=== PATIENT | male | born 1965 | race Caucasian/White ===

== ENCOUNTER 2018-08-27 13:46 | Inpatient (IN) | payer OTHER ==
[2018-08-27 15:03] VITALS: BMI 21.8
--- NOTE | 2018-08-27 17:51 | HP ---
CIWA Score Nausea/Vomitin Muscle Tremors: 2 Anxiety: 2 Agitation: 2 Paroxysmal Sweats: 1-Minimal Palms Moist Orientation: 0-Oriented Tacttile Disturbances: 1-Very Mild Itch/Numbness Auditory Disturbances: 1-Very Mild Visual Disturbances: 0-None Headache: 2-Mild CIWA-Ar Total Score: 13 - Admission Criteria OASAS Guidelines: Admission for Medically Managed Detox: Requires at least one of the followin. CIWA greater than 12 2. Seizures within the past 24 hours 3. Delirium tremens within the past 24 hours 4. Hallucinations within the past 24 hours 5. Acute intervention needed for co occurring medical disorder 6. Acute intervention needed for co occurring psychiatric disorder 7. Severe withdrawal that cannot be handled at a lower level of care (continued vomiting, continued diarrhea, abnormal vital signs) requiring intravenous medication and/or fluids 8. Patient presents the following: CIWA greater than 12 Admission Criteria Met: Admission criteria met Admission ROS S - [facility] Chief Complaint: i need help to stop drinking alcohol and cocaine Allergies/Adverse Reactions: Allergies Allergy/AdvReac Type Severity Reaction Status Date / Time No Known Allergies Allergy Verified 08/27/18 18:16 History of Present Illness: this 53 years old with alcohol and cocaine dependence,seeking detox,withdrawal symptom,last detox 08/07 in [place], [facility] [place] alcohol related nicotine dependence longest period of sobriety 7 years bipolar disorder with depression non compliance weight loss plan for rehab after detox - Ebola screening Have you traveled outside of the country in the last 21 days: No (N) Have you had contact with anyone from an Ebola affected area: No Have you been sick,other than usual withdrawal symptoms: No Do you have a fever: No - Review of Systems Constitutional: Loss of Appetite, Malaise, Night Sweats, Changes in sleep, Weakness, Unintentional Wgt. Loss EENT: reports: Tearing, Nose Congestion Respiratory: reports: No Symptoms reported Cardiac: reports: No Symptoms Reported GI: reports: Nausea, Poor Appetite, Abdominal cramping : reports: No Symptoms Reported Musculoskeletal: reports: Back Pain, Muscle Pain Integumentary: reports: Dryness Neuro: reports: Headache, Tremors Endocrine: reports: No Symptoms Reported Hematology: reports: No Symptoms Reported Psychiatric: reports: No Sypmtoms Reported, Judgement Intact, Mood/Affect Appropiate, Orientated x3, other (bipolar disorder) Patient History - Patient Medical History Hx Anemia: No Hx Asthma: No Hx Chronic Obstructive Pulmonary Disease (COPD): No Hx Cancer: No Hx Cardiac Disorders: No Hx Congestive Heart Failure: No Hx Hypertension: No Hx Hypercholesterolemia: No Hx Pacemaker: No HX Cerebrovascular Accident: No Hx Seizures: No Hx Dementia: No Hx Diabetes: No Hx Gastrointestinal Disorders: No Hx Liver Disease: No Hx Genitourinary Disorders: No Hx Sexually Transmitted Disorders: No Hx Renal Disease (ESRD): No Hx Thyroid Disease: No Hx Human Immunodeficiency Virus (HIV): No Hx Hepatitis C: No Hx Depression: Yes (no med) Hx Suicide Attempt: No Hx Bipolar Disorder: Yes (noncompliance) Hx Schizophrenia: No Other Medical History: no suicidal,no homicidal - Patient Surgical History Past Surgical History: No Hx Neurologic Surgery: No Hx Cataract Extraction: No Hx Cardiac Surgery: No Hx Lung Surgery: No Hx Breast Surgery: No Hx Breast Biopsy: No Hx Abdominal Surgery: No Hx Appendectomy: No Hx Cholecystectomy: No Hx Genitourinary Surgery: No Hx Section: No Hx Orthopedic Surgery: No Anesthesia Reaction: No - PPD History Previous Implant?: Yes Documented Results: Negative w/o proof Implanted On Prior R Admission?: Yes Date: 07/25/12 PPD to be Administered?: Yes - Smoking Cessation Smoking history: Current every day smoker Have you smoked in the past 12 months: Yes Aproximately how many cigarettes per day: 10 Hx Chewing Tobacco Use: No Initiated information on smoking cessation: Yes 'Breaking Loose' booklet given: 08/27/18 - Substance & Tx. History Hx Alcohol Use: Yes Hx Substance Use: Yes Substance Use Type: Alcohol, Cocaine Hx Substance Use Treatment: Yes (08/07 [place]) - Substances Abused Alcohol Route: Oral Frequency: Daily Amount used: 1pint of vodka/6 packs of 24 ozs of beer Age of first use: 8 Date of Last Use: 08/26/18 Cocaine Route: Smoking Frequency: Daily Amount used: 100$ Age of first use: 9 Date of Last Use: 08/23/18 Family Disease History - Family Disease History Family History: Denies Admission Physical Exam BHS - Vital Signs Vital Signs: Vital Signs - 24 hr 08/27/18 15:00 Temperature 97.8 F Pulse Rate 81 Respiratory 18 Rate Blood Pressure 104/63 - Physical General Appearance: Yes: Moderate Distress, Tremorous, Irritable, Sweating, Anxious HEENTM: Yes: Normal ENT Inspection, KELLEY, Pharynx Normal Respiratory: Yes: Lungs Clear, Normal Breath Sounds Neck: Yes: Within Normal Limits, Supple, Trachea in good position Breast: Yes: Within Normal Limits Cardiology: Yes: Regular Rhythm, Regular Rate, S1, S2, Edema Abdominal: Yes: Within Normal Limits, Normal Bowel Sounds, Non Tender, Soft Genitourinary: Yes: Within Normal Limits Back: Yes: Muscle Spasm Musculoskeletal: Yes: full range of Motion, Back pain, Muscle Pain Extremities: Yes: Tremors Neurological: Yes: tearoom hostess II-XII NML intact, Fully Oriented, Alert, Motor Strength 5/5 Integumentary: Yes: Dry Lymphatic: Yes: Within Normal Limits - Diagnostic (1) Alcohol dependence with uncomplicated withdrawal Current Visit: Yes Status: Acute (2) Cocaine dependence Current Visit: No Status: Active (3) Weight decreased Current Visit: No Status: Active (4) Syncope Current Visit: Yes Status: Acute (5) Dehydration Current Visit: Yes Status: Acute (6) Nicotine dependence Current Visit: Yes Status: Acute (7) Weight loss Current Visit: Yes Status: Acute Cleared for Admission [facility] - Detox or Rehab [facility] Level of Care: Medically Managed Detox Regimen/Protocol: Librium S Breath Alcohol Content Breath Alcohol Content: 0 Urine Drug Screen - Results Drug Screen Negative: No Urine Drug Screen Results: EFRA-Cocaine
[2018-08-27] MEDS ORDERED: IBUPROFEN 400 MG TABLET (FP) PO PRN (18:00)
[2018-08-27] MEDS ORDERED: MAG HYDROX/AL HYDROX/SIMETH 30 ML UNIT-DOSE CUP PO PRN (18:00)
[2018-08-27] MEDS ORDERED: MENTHOL/PHENOL 1 EACH UD MM PRN (18:00)
[2018-08-27] MEDS ORDERED: NICOTINE POLACRILEX 2 MG GUM BC PRN (18:00)
[2018-08-27] MEDS ORDERED: MAGNESIUM CITRATE 300 ML BOTTLE PO PRN (18:00)
[2018-08-27] MEDS ORDERED: ACETAMINOPHEN 325 MG TABLET (FP) PO PRN (18:00)
[2018-08-27] MEDS ORDERED: P-EPHED 60MG/TRIPROLIDI 2.5MG TABLET PO PRN (18:00)
[2018-08-27] MEDS ORDERED: LOPERAMIDE HCL 2 MG CAPSULE PO PRN (18:00)
[2018-08-27] MEDS ORDERED: guaiFENesin/D-METHORPHAN HB 10 ML UNIT-DOSE CUPS PO PRN (18:00)
[2018-08-27] MEDS ORDERED: MAGNESIUM HYDROX 2400MG/30ML ORAL SUSPENSION 30 ML CUP PO PRN (18:00)
[2018-08-27] MEDS ORDERED: chlordiazePOXIDE HCL 25 MG CAPSULE PO PRN (18:00)
[2018-08-27] MEDS ORDERED: hydrOXYzine PAMOATE 50 MG CAPSULE (FP) PO PRN (18:00)
[2018-08-27] MEDS: THIAMINE HCL 100 MG TABLET (FP) PO SCH (22:04)
[2018-08-27] MEDS: chlordiazePOXIDE HCL 25 MG CAPSULE PO SCH (22:04)
[2018-08-28] MEDS: chlordiazePOXIDE HCL 25 MG CAPSULE PO SCH ×4 (05:13→22:20)
[2018-08-28] MEDS: PRENATAL VITAMINS W/ FOLIC ACID TABLET (FP) PO SCH (10:08)
[2018-08-28] MEDS: NICOTINE 21 MG/24 HOURS TOPICAL PATCH TD SCH (10:10)
[2018-08-28 10:12] LABS: ALBUMIN 3.6 g/dl (3.4-5.0); ALK PHOS 78 U/L (45-117); ANION GAP 7 MMOL/L (8-16); BILIRUBIN,TOTAL 0.2 mg/dL (0.2-1); BLOOD UREA NITROGEN 15 mg/dL (7-18); CALCIUM 8.6 mg/dL (8.5-10.1); CHLORIDE 106 mmol/L (98-107); CO2 29 mmol/L (21-32); GLUCOSE,RANDOM 90 mg/dL (74-106); POTASSIUM 4.2 mmol/L (3.5-5.1); SGOT/AST 23 U/L (15-37); SGPT/ALT 23 U/L (13-61); SODIUM 142 mmol/L (136-145); TOT PROT 6.8 g/dl (6.4-8.2)
[2018-08-28 10:23] LABS: HEMATOCRIT 42.4 % (35.4-49); HEMOGLOBIN 14.8 GM/dL (11.7-16.9); MCH 29.5 pg (25.7-33.7); MEAN CELL VOLUME 84.3 fl (80-96); MEAN PLT VOLUME 7.7 fl (7.5-11.1); PLATELET COUNT 436 K/MM3 (134-434); RBC 5.03 M/mm3 (4.00-5.60); RDW 12.9 % (11.9-15.9); WHITE BLOOD COUNT 11.1 K/mm3 (4.0-10.0)
--- NOTE | 2018-08-28 12:19 | PN ---
BHS CIWA - CIWA Score Nausea/Vomitin Muscle Tremors: None Anxiety: 1-Mildly Anxious Agitation: 1-Slight > Activity Paroxysmal Sweats: 3 Orientation: 0-Oriented Tacttile Disturbances: 0-None Auditory Disturbances: 0-None Visual Disturbances: 0-None Headache: 3-Moderate CIWA-Ar Total Score: 10 BHS Progress Note (SOAP) Subjective: PATIENT C/O NAUSEA/DIARRHEA, HEADACHE AND NIGHT SWEATS. Objective: 08/28/18 12:17 Vital Signs Temperature 97.0 F L 08/28/18 09:19 Pulse Rate 69 08/28/18 09:19 Respiratory Rate 16 08/28/18 09:19 Blood Pressure 95/55 L 08/28/18 09:19 O2 Sat by Pulse Oximetry (%) Laboratory Tests 08/28/18 08/28/18 08/28/18 07:00 07:00 07:00 WBC 11.1 H RBC 5.03 Hgb 14.8 Hct 42.4 MCV 84.3 MCH 29.5 MCHC 35.0 RDW 12.9 Plt Count 436 H D MPV 7.7 Sodium 142 Potassium 4.2 Chloride 106 Carbon Dioxide 29 Anion Gap 7 L BUN 15 Creatinine 1.0 Creat Clearance w eGFR > 60 Random Glucose 90 Calcium 8.6 Total Bilirubin 0.2 AST 23 ALT 23 Alkaline Phosphatase 78 Total Protein 6.8 Albumin 3.6 RPR Titer Nonreactive PE: ALERT AND ORIENTED X 3 SKIN WARM, +FACIAL MOISTURE NEURO: +PERRLA, EOMS INTACT BL CAR S1S2 RESP CTA BL EXT FULL ROM, NO VISIBLE TREMORS AMB AD ALTON Assessment: 08/28/18 12:18 WITHDRAWAL SX Plan: CONTINUE DETOX ENCOURAGE ORAL FLUIDS CONTINUE TO MONITOR CLINICALLY
[2018-08-28] MEDS: MELATONIN 5 MG TABLETS PO PRN (22:20)
[2018-08-28] MEDS: THIAMINE HCL 100 MG TABLET (FP) PO SCH (22:20)
[2018-08-29] MEDS: chlordiazePOXIDE HCL 25 MG CAPSULE PO SCH ×3 (06:31→17:21)
[2018-08-29] MEDS: PRENATAL VITAMINS W/ FOLIC ACID TABLET (FP) PO SCH (10:11)
[2018-08-29] MEDS: NICOTINE 21 MG/24 HOURS TOPICAL PATCH TD SCH (10:12)
--- NOTE | 2018-08-29 13:21 | PN ---
S CIWA - CIWA Score Nausea/Vomitin-No Nausea/No Vomiting Muscle Tremors: 2 Anxiety: 4-Mod. Anxious/Guarded Agitation: 2 Paroxysmal Sweats: No Perspiration Orientation: 0-Oriented Tacttile Disturbances: 0-None Auditory Disturbances: 0-None Visual Disturbances: 0-None Headache: 0-None Present CIWA-Ar Total Score: 8 BHS Progress Note (SOAP) Subjective: PATIENT C/O MILD SHAKES, CHILLS, ANXIETY AND RESTLESSNESS. Objective: 08/29/18 13:19 Vital Signs Temperature 96.2 F L 08/29/18 09:26 Pulse Rate 78 08/29/18 09:26 Respiratory Rate 17 08/29/18 09:26 Blood Pressure 101/73 08/29/18 09:26 O2 Sat by Pulse Oximetry (%) Laboratory Tests 08/28/18 08/28/18 08/28/18 07:00 07:00 07:00 WBC 11.1 H RBC 5.03 Hgb 14.8 Hct 42.4 MCV 84.3 MCH 29.5 MCHC 35.0 RDW 12.9 Plt Count 436 H D MPV 7.7 Sodium 142 Potassium 4.2 Chloride 106 Carbon Dioxide 29 Anion Gap 7 L BUN 15 Creatinine 1.0 Creat Clearance w eGFR > 60 Random Glucose 90 Calcium 8.6 Total Bilirubin 0.2 AST 23 ALT 23 Alkaline Phosphatase 78 Total Protein 6.8 Albumin 3.6 RPR Titer Nonreactive PE: ALERT AND ORIENTED X 3 SKIN +GOOSEFLESH EXT FULL ROM, MILD TREMORS AMB AD ALTON +ANXIETY Assessment: 08/29/18 13:21 WITHDRAWAL SX Plan: CONTINUE DETOX ENCOURAGE ORAL FLUIDS CONTINUE TO MONITOR CLINICALLY
[2018-08-29] MEDS: MELATONIN 5 MG TABLETS PO PRN (22:04)
[2018-08-29] MEDS: chlordiazePOXIDE 5 MG CAPSULE PO SCH (22:04)
[2018-08-29] MEDS: THIAMINE HCL 100 MG TABLET (FP) PO SCH (22:04)
[2018-08-30] MEDS: chlordiazePOXIDE 5 MG CAPSULE PO SCH ×3 (05:58→17:28)
[2018-08-30] MEDS: NICOTINE 21 MG/24 HOURS TOPICAL PATCH TD SCH (10:28)
[2018-08-30] MEDS: PRENATAL VITAMINS W/ FOLIC ACID TABLET (FP) PO SCH (10:29)
--- NOTE | 2018-08-30 11:40 | PN ---
BHS Progress Note (SOAP) Subjective: feeling better less tremor little sweat sleep better at night social with peers in day room Objective: 08/30/18 11:39 Vital Signs Temperature 96.9 F L 08/30/18 09:10 Pulse Rate 70 08/30/18 09:10 Respiratory Rate 18 08/30/18 09:10 Blood Pressure 101/58 L 08/30/18 09:10 O2 Sat by Pulse Oximetry (%) Laboratory Last Values WBC 11.1 K/mm3 (4.0-10.0) H 08/28/18 07:00 RBC 5.03 M/mm3 (4.00-5.60) 08/28/18 07:00 Hgb 14.8 GM/dL (11.7-16.9) 08/28/18 07:00 Hct 42.4 % (35.4-49) 08/28/18 07:00 MCV 84.3 fl (80-96) 08/28/18 07:00 MCH 29.5 pg (25.7-33.7) 08/28/18 07:00 MCHC 35.0 g/dl (32.0-35.9) 08/28/18 07:00 RDW 12.9 % (11.9-15.9) 08/28/18 07:00 Plt Count 436 K/MM3 (134-434) H D 08/28/18 07:00 MPV 7.7 fl (7.5-11.1) 08/28/18 07:00 Sodium 142 mmol/L (136-145) 08/28/18 07:00 Potassium 4.2 mmol/L (3.5-5.1) 08/28/18 07:00 Chloride 106 mmol/L (98-107) 08/28/18 07:00 Carbon Dioxide 29 mmol/L (21-32) 08/28/18 07:00 Anion Gap 7 MMOL/L (8-16) L 08/28/18 07:00 BUN 15 mg/dL (7-18) 08/28/18 07:00 Creatinine 1.0 mg/dL (0.55-1.3) 08/28/18 07:00 Creat Clearance w eGFR > 60 (>60) 08/28/18 07:00 Random Glucose 90 mg/dL (74-106) 08/28/18 07:00 Calcium 8.6 mg/dL (8.5-10.1) 08/28/18 07:00 Total Bilirubin 0.2 mg/dL (0.2-1) 08/28/18 07:00 AST 23 U/L (15-37) 08/28/18 07:00 ALT 23 U/L (13-61) 08/28/18 07:00 Alkaline Phosphatase 78 U/L (45-117) 08/28/18 07:00 Total Protein 6.8 g/dl (6.4-8.2) 08/28/18 07:00 Albumin 3.6 g/dl (3.4-5.0) 08/28/18 07:00 RPR Titer Nonreactive (NONREACTIVE) 08/28/18 07:00 lab noted Assessment: 08/30/18 11:40 mild withdrawal sx Plan: continue detox
[2018-08-30] MEDS: THIAMINE HCL 100 MG TABLET (FP) PO SCH (22:12)
[2018-08-30] MEDS: MELATONIN 5 MG TABLETS PO PRN (22:12)
[2018-08-30] MEDS: chlordiazePOXIDE HCL 10 MG CAPSULE PO SCH (22:12)
[2018-08-31] MEDS: chlordiazePOXIDE HCL 10 MG CAPSULE PO SCH ×2 (06:00→10:11)
[2018-08-31] MEDS: NICOTINE 21 MG/24 HOURS TOPICAL PATCH TD SCH (10:12)
[2018-08-31] MEDS: PRENATAL VITAMINS W/ FOLIC ACID TABLET (FP) PO SCH (10:13)
[2018-08-31 13:10] VITALS: BP 87/51; PULSE 76; TEMP 98.2
--- NOTE | 2018-08-31 15:29 | DS ---
[facility] Detox Discharge Summary Admission Date: 08/27/18 Discharge Date: 08/31/18 - History Present History: Alcohol Dependence Additional Comments: 53 years old male admitted on 08/27/18 for alcohol withdrawal stabilization completed detox regime tolerated well alert no acute distress aftercare [facility] Physical Exam Results Vital Signs: Vital Signs Temperature 98.2 F 08/31/18 13:09 Pulse Rate 76 08/31/18 13:09 Respiratory Rate 16 08/31/18 13:09 Blood Pressure 87/51 L 08/31/18 13:09 O2 Sat by Pulse Oximetry (%) Pertinent Admission Physical Exam Findings: alcohol withdrawal sx Laboratory Last Values WBC 11.1 K/mm3 (4.0-10.0) H 08/28/18 07:00 RBC 5.03 M/mm3 (4.00-5.60) 08/28/18 07:00 Hgb 14.8 GM/dL (11.7-16.9) 08/28/18 07:00 Hct 42.4 % (35.4-49) 08/28/18 07:00 MCV 84.3 fl (80-96) 08/28/18 07:00 MCH 29.5 pg (25.7-33.7) 08/28/18 07:00 MCHC 35.0 g/dl (32.0-35.9) 08/28/18 07:00 RDW 12.9 % (11.9-15.9) 08/28/18 07:00 Plt Count 436 K/MM3 (134-434) H D 08/28/18 07:00 MPV 7.7 fl (7.5-11.1) 08/28/18 07:00 Sodium 142 mmol/L (136-145) 08/28/18 07:00 Potassium 4.2 mmol/L (3.5-5.1) 08/28/18 07:00 Chloride 106 mmol/L (98-107) 08/28/18 07:00 Carbon Dioxide 29 mmol/L (21-32) 08/28/18 07:00 Anion Gap 7 MMOL/L (8-16) L 08/28/18 07:00 BUN 15 mg/dL (7-18) 08/28/18 07:00 Creatinine 1.0 mg/dL (0.55-1.3) 08/28/18 07:00 Creat Clearance w eGFR > 60 (>60) 08/28/18 07:00 Random Glucose 90 mg/dL (74-106) 08/28/18 07:00 Calcium 8.6 mg/dL (8.5-10.1) 08/28/18 07:00 Total Bilirubin 0.2 mg/dL (0.2-1) 08/28/18 07:00 AST 23 U/L (15-37) 08/28/18 07:00 ALT 23 U/L (13-61) 08/28/18 07:00 Alkaline Phosphatase 78 U/L (45-117) 08/28/18 07:00 Total Protein 6.8 g/dl (6.4-8.2) 08/28/18 07:00 Albumin 3.6 g/dl (3.4-5.0) 08/28/18 07:00 RPR Titer Nonreactive (NONREACTIVE) 08/28/18 07:00 lab noted - Treatment Hospital Course: Detox Protocol Followed, Detoxed Safely, Responded well, Discharged Condition Good, Rehab Referral Accepted - Medication Discharge Medications: Ambulatory Orders Citalopram Hydrobromide [Celexa -] 20 mg PO DAILY #0 tablet 07/26/12 - Diagnosis (1) Weight decreased Status: Active (2) Alcohol dependence with uncomplicated withdrawal Status: Acute (3) Nicotine dependence Status: Acute Qualifiers: Nicotine product type: cigarettes Substance use status: in withdrawal Qualified Code(s): F17.213 - Nicotine dependence, cigarettes, with withdrawal - AMA Did Patient Leave Against Medical Advice: No
== END 2018-08-31 14:31 | disposition other institution (70) | DRG 774 ==
LOC: YASAS 13:46 → Y3N 18:03
PROC: HZ2ZZZZ Detoxification Services for Substance Abuse Treatment (ICD-10-PCS; principal; 2018-08-27)
DX: F10.230 Alcohol dependence with withdrawal, uncomplicated (principal); F14.20 Cocaine dependence, uncomplicated; F17.213 Nicotine dependence, cigarettes, with withdrawal; E86.0 Dehydration; Z91.14 Patient's other noncompliance with medication regimen
CPT/HCPCS: 36415; 80053; 85027; 86593

== ENCOUNTER 2018-08-31 15:09 | Inpatient (IN) | payer OTHER ==
[2018-08-31] MEDS ORDERED: LOPERAMIDE HCL 2 MG CAPSULE PO PRN (15:32)
[2018-08-31] MEDS ORDERED: NICOTINE POLACRILEX 2 MG GUM BUC PRN (15:32)
[2018-08-31] MEDS ORDERED: P-EPHED 60MG/TRIPROLIDI 2.5MG TABLET PO PRN (15:32)
[2018-08-31] MEDS ORDERED: MAGNESIUM HYDROX 2400MG/30ML ORAL SUSPENSION 30 ML CUP PO PRN (15:32)
[2018-08-31] MEDS ORDERED: MAGNESIUM CITRATE 300 ML BOTTLE PO PRN (15:32)
[2018-08-31] MEDS ORDERED: IBUPROFEN 400 MG TABLET (FP) PO PRN (15:32)
[2018-08-31] MEDS ORDERED: NICOTINE 14 MG/24 HOURS TOPICAL PATCH TD PRN (15:32)
[2018-08-31] MEDS ORDERED: MAG HYDROX/AL HYDROX/SIMETH 30 ML UNIT-DOSE CUP PO PRN (15:32)
[2018-08-31] MEDS ORDERED: ACETAMINOPHEN 325 MG TABLET (FP) PO PRN (15:32)
[2018-08-31] MEDS ORDERED: MENTHOL/PHENOL 1 EACH UD MM PRN (15:32)
--- NOTE | 2018-08-31 15:32 | HP ---
[facility] Rehab Assess/Revision - Admission History Admitted to Rehab from: [facility] Date of Admission to Rehab: 08/31/18 - Findings Detox History & Physical reviewed: Yes Concur with findings: Yes Comments/Additional Findings: transferred from detox to rehab admission as per protocol Inpatient Rehab Admission - Initial Determination Are CD services needed?: Yes Free of communicable disease: Yes Not in need of hospitalization: Yes - Rehab Admission Criteria Previous failed treatment: Yes Poor recovery environment: Yes Comorbidities: Yes Lacks judgement: No Patient is meeting Inpatient Rehab admission criteria:: Yes
[2018-08-31] MEDS: THIAMINE HCL 100 MG TABLET (FP) PO SCH (21:13)
[2018-08-31] MEDS: MELATONIN 5 MG TABLETS PO PRN (21:13)
--- NOTE | 2018-09-01 06:04 | HP ---
Psychiatrist Admission - Data Date of interview: 09/01/18 Admission source: [address] [place] [address] Identifying data: This is the first [facility] admission for this 53 years old single male, unemployed on SSI, homeless Medical History: Unremarkable. Smokes 10 cigaretes daily Psychiatric History: Patient is a poor historian and his recollection of historical narrative is very sketchy. Reports that he has history of hearing voices, feeling depressed and sleeping poorly. He said that he was diagnosed with Bipolar Disorder a few years ago. Claims to have had multiple psychiatric admissions in hospitals all over [facility](Pending Sale To [facility], [place], [facility], [facility], [facility]). He said most recent one was [facility] but he has no recollection of date. Denies receiving outpatient OPD care currently. He claims that up to a 2 weeks ago when he was living at his cousin in [place] he was taking Risperdal 3 mg po HS and some other medications. He said that his cousin asked him to leave and he forgot his medications there. According to [employer] claim, scripts for 30 days supply for Celexa 30 mg#30 and Trazadone 100 mg#30 prescribed by Abigail Allen were filled on 01/24/18. When confronted with that fact, he said that he was in a 6 month propram caleed prep in [place]. Denies history of previous suicidal attempt. At present, reports feeling depressed and sleeping poorly. However denies experiencing psychotic, manic symptoms, S/H ideations Physical/Sexual Abuse/Trauma History: Denies history of emotional, physical or sexual abuse as well as DV relationship. No service Additional Comment: Reports history of a few arrests including 2 felony covictions. No parole/probation currently Allergies/Adverse Reactions: Allergies Allergy/AdvReac Type Severity Reaction Status Date / Time No Known Allergies Allergy Verified 08/27/18 18:16 Date of last physical exam: 08/27/18 Concur with the findings of this exam: Yes - Substance Abuse/Tx History Hx Alcohol Use: Yes Hx Substance Use: Yes Substance Use Type: Alcohol (Started drinking alcohol at age 8, consumes one pint of vodka & a 6pk(24oz) of beer daily. Last drank on 08/26/18), Cocaine ( Started smoking crack cocaine at age 9, consumes $100 worth daily. Last smoked on 08/26/18) Hx Substance Use Treatment: Yes (2 previous inpt detox @ [facility]) Mental Status Exam - Mental Status Exam Alert and Oriented to: Time, Place, Person Cognitive Function: Fair Patient Appearance: Well Groomed Mood: Depressed Affect: Appropriate Patient Behavior: Cooperative Speech Pattern: Clear Voice Loudness: Normal Thought Process: Intact, Goal Oriented Thought Disorder: Not Present Hallucinations: Denies Suicidal Ideation: Denies Homicidal Ideation: Denies Insight/Judgement: Fair Sleep: Poorly Appetite: Good Muscle strength/Tone: Normal Gait/Station: Normal Psychiatric Findings - Problem List ([place] 1, 2,3) (1) Alcohol dependence Current Visit: No Status: Active (2) Cocaine dependence Current Visit: No Status: Acute (3) Nicotine dependence Current Visit: No Status: Chronic Qualifiers: Nicotine product type: cigarettes Substance use status: in withdrawal Qualified Code(s): F17.213 - Nicotine dependence, cigarettes, with withdrawal (4) Bipolar II disorder Current Visit: Yes Status: Chronic (5) Schizoaffective disorder Current Visit: Yes Status: Ruled-out (6) Substance induced mood disorder Current Visit: Yes Status: Acute (7) Substance-induced sleep disorder Current Visit: Yes Status: Acute - Initial Treatment Plan Initial Treatment Plan: 1) Resume Risperdal 3 mg po HS, Celexa 20 mg po daily and Trazadone 100 mg po HS. 2) Monitor progress
[2018-09-01] MEDS: PRENATAL VITAMINS W/ FOLIC ACID TABLET (FP) PO SCH (09:54)
[2018-09-01] MEDS: CITALOPRAM HYDROBROMIDE 20 MG TABLET (FP) PO SCH (16:16)
[2018-09-01] MEDS: THIAMINE HCL 100 MG TABLET (FP) PO SCH (21:54)
[2018-09-01] MEDS: risperiDONE 3 MG TABLET PO SCH (21:54)
[2018-09-01] MEDS: traZODone HCL 100 MG TABLET (FP) PO SCH (21:54)
[2018-09-01] MEDS: NAPROXEN 375 MG TABLET (FP) PO PRN (21:55)
[2018-09-01] MEDS: MELATONIN 5 MG TABLETS PO PRN (21:55)
[2018-09-02] MEDS: CITALOPRAM HYDROBROMIDE 20 MG TABLET (FP) PO SCH (11:26)
[2018-09-02] MEDS: PRENATAL VITAMINS W/ FOLIC ACID TABLET (FP) PO SCH (11:26)
[2018-09-02] MEDS: NAPROXEN 375 MG TABLET (FP) PO PRN (11:27)
[2018-09-02] MEDS ORDERED: FLU VACCINE QUAD 60 MCG/0.5 ML (MDV 18-19) IM ONE (12:00)
[2018-09-02] MEDS: risperiDONE 3 MG TABLET PO SCH (21:11)
[2018-09-02] MEDS: traZODone HCL 100 MG TABLET (FP) PO SCH (21:11)
[2018-09-02] MEDS: THIAMINE HCL 100 MG TABLET (FP) PO SCH (21:12)
[2018-09-03] MEDS: CITALOPRAM HYDROBROMIDE 20 MG TABLET (FP) PO SCH (09:57)
[2018-09-03] MEDS: PRENATAL VITAMINS W/ FOLIC ACID TABLET (FP) PO SCH (09:57)
[2018-09-03] MEDS: THIAMINE HCL 100 MG TABLET (FP) PO SCH (21:16)
[2018-09-03] MEDS: risperiDONE 3 MG TABLET PO SCH (21:16)
[2018-09-03] MEDS: traZODone HCL 100 MG TABLET (FP) PO SCH (21:16)
[2018-09-03] MEDS: MELATONIN 5 MG TABLETS PO PRN (21:17)
[2018-09-04] MEDS: PRENATAL VITAMINS W/ FOLIC ACID TABLET (FP) PO SCH (09:54)
[2018-09-04] MEDS: CITALOPRAM HYDROBROMIDE 20 MG TABLET (FP) PO SCH (09:55)
[2018-09-04] MEDS: risperiDONE 3 MG TABLET PO SCH (21:33)
[2018-09-04] MEDS: traZODone HCL 100 MG TABLET (FP) PO SCH (21:33)
[2018-09-04] MEDS: THIAMINE HCL 100 MG TABLET (FP) PO SCH (21:33)
[2018-09-04] MEDS: MELATONIN 5 MG TABLETS PO PRN (21:34)
[2018-09-05] MEDS: PRENATAL VITAMINS W/ FOLIC ACID TABLET (FP) PO SCH (09:45)
[2018-09-05] MEDS: CITALOPRAM HYDROBROMIDE 20 MG TABLET (FP) PO SCH (09:45)
[2018-09-05] MEDS: MELATONIN 5 MG TABLETS PO PRN (21:09)
[2018-09-05] MEDS: THIAMINE HCL 100 MG TABLET (FP) PO SCH (21:09)
[2018-09-05] MEDS: traZODone HCL 100 MG TABLET (FP) PO SCH (21:09)
[2018-09-05] MEDS: risperiDONE 3 MG TABLET PO SCH (21:09)
[2018-09-06] MEDS: CITALOPRAM HYDROBROMIDE 20 MG TABLET (FP) PO SCH (09:47)
[2018-09-06] MEDS: PRENATAL VITAMINS W/ FOLIC ACID TABLET (FP) PO SCH (09:47)
[2018-09-06] MEDS: THIAMINE HCL 100 MG TABLET (FP) PO SCH (21:51)
[2018-09-06] MEDS: traZODone HCL 100 MG TABLET (FP) PO SCH (21:51)
[2018-09-06] MEDS: risperiDONE 3 MG TABLET PO SCH (21:51)
[2018-09-06] MEDS: MELATONIN 5 MG TABLETS PO PRN (21:51)
[2018-09-07] MEDS: PRENATAL VITAMINS W/ FOLIC ACID TABLET (FP) PO SCH (09:38)
[2018-09-07] MEDS: CITALOPRAM HYDROBROMIDE 20 MG TABLET (FP) PO SCH (09:38)
[2018-09-07] MEDS: THIAMINE HCL 100 MG TABLET (FP) PO SCH (21:09)
[2018-09-07] MEDS: risperiDONE 3 MG TABLET PO SCH (21:09)
[2018-09-07] MEDS: traZODone HCL 100 MG TABLET (FP) PO SCH (21:09)
[2018-09-07] MEDS: MELATONIN 5 MG TABLETS PO PRN (21:09)
[2018-09-07] MEDS: NAPROXEN 375 MG TABLET (FP) PO PRN (21:11)
[2018-09-08] MEDS: PRENATAL VITAMINS W/ FOLIC ACID TABLET (FP) PO SCH (09:45)
[2018-09-08] MEDS: CITALOPRAM HYDROBROMIDE 20 MG TABLET (FP) PO SCH (09:45)
[2018-09-08] MEDS: risperiDONE 3 MG TABLET PO SCH (21:18)
[2018-09-08] MEDS: traZODone HCL 100 MG TABLET (FP) PO SCH (21:18)
[2018-09-08] MEDS: MELATONIN 5 MG TABLETS PO PRN (21:18)
[2018-09-08] MEDS: THIAMINE HCL 100 MG TABLET (FP) PO SCH (21:18)
[2018-09-09] MEDS: CITALOPRAM HYDROBROMIDE 20 MG TABLET (FP) PO SCH (09:38)
[2018-09-09] MEDS: PRENATAL VITAMINS W/ FOLIC ACID TABLET (FP) PO SCH (09:38)
[2018-09-09] MEDS: risperiDONE 3 MG TABLET PO SCH (21:27)
[2018-09-09] MEDS: MELATONIN 5 MG TABLETS PO PRN (21:27)
[2018-09-09] MEDS: THIAMINE HCL 100 MG TABLET (FP) PO SCH (21:27)
[2018-09-09] MEDS: traZODone HCL 100 MG TABLET (FP) PO SCH (21:27)
[2018-09-10] MEDS: CITALOPRAM HYDROBROMIDE 20 MG TABLET (FP) PO SCH (09:51)
[2018-09-10] MEDS: PRENATAL VITAMINS W/ FOLIC ACID TABLET (FP) PO SCH (09:51)
[2018-09-10] MEDS: THIAMINE HCL 100 MG TABLET (FP) PO SCH (21:18)
[2018-09-10] MEDS: MELATONIN 5 MG TABLETS PO PRN (21:18)
[2018-09-10] MEDS: risperiDONE 3 MG TABLET PO SCH (21:18)
[2018-09-10] MEDS: traZODone HCL 100 MG TABLET (FP) PO SCH (21:18)
[2018-09-11] MEDS ORDERED: PT OWN MED DRAWER 7, Y5N ONE (08:29)
[2018-09-11] MEDS: PRENATAL VITAMINS W/ FOLIC ACID TABLET (FP) PO SCH (10:08)
[2018-09-11] MEDS: CITALOPRAM HYDROBROMIDE 20 MG TABLET (FP) PO SCH (10:08)
[2018-09-11] MEDS: risperiDONE 3 MG TABLET PO SCH (21:26)
[2018-09-11] MEDS: THIAMINE HCL 100 MG TABLET (FP) PO SCH (21:26)
[2018-09-11] MEDS: traZODone HCL 100 MG TABLET (FP) PO SCH (21:27)
[2018-09-11] MEDS: MELATONIN 5 MG TABLETS PO PRN (21:27)
[2018-09-12] MEDS: PRENATAL VITAMINS W/ FOLIC ACID TABLET (FP) PO SCH (09:44)
[2018-09-12] MEDS: CITALOPRAM HYDROBROMIDE 20 MG TABLET (FP) PO SCH (09:44)
[2018-09-12] MEDS: risperiDONE 3 MG TABLET PO SCH (21:40)
[2018-09-12] MEDS: THIAMINE HCL 100 MG TABLET (FP) PO SCH (21:40)
[2018-09-12] MEDS: traZODone HCL 100 MG TABLET (FP) PO SCH (21:40)
[2018-09-12] MEDS: MELATONIN 5 MG TABLETS PO PRN (21:42)
[2018-09-13] MEDS: CITALOPRAM HYDROBROMIDE 20 MG TABLET (FP) PO SCH (09:40)
[2018-09-13] MEDS: PRENATAL VITAMINS W/ FOLIC ACID TABLET (FP) PO SCH (09:40)
[2018-09-13] MEDS: traZODone HCL 100 MG TABLET (FP) PO SCH (21:17)
[2018-09-13] MEDS: MELATONIN 5 MG TABLETS PO PRN (21:17)
[2018-09-13] MEDS: risperiDONE 3 MG TABLET PO SCH (21:17)
[2018-09-13] MEDS: THIAMINE HCL 100 MG TABLET (FP) PO SCH (21:17)
[2018-09-14] MEDS: CITALOPRAM HYDROBROMIDE 20 MG TABLET (FP) PO SCH (10:19)
[2018-09-14] MEDS: PRENATAL VITAMINS W/ FOLIC ACID TABLET (FP) PO SCH (10:19)
[2018-09-14] MEDS: guaiFENesin/D-METHORPHAN HB 10 ML UNIT-DOSE CUPS PO PRN ×2 (10:48→21:08)
[2018-09-14] MEDS: risperiDONE 3 MG TABLET PO SCH (21:08)
[2018-09-14] MEDS: THIAMINE HCL 100 MG TABLET (FP) PO SCH (21:08)
[2018-09-14] MEDS: traZODone HCL 100 MG TABLET (FP) PO SCH (21:08)
[2018-09-14] MEDS: MELATONIN 5 MG TABLETS PO PRN (21:08)
[2018-09-15] MEDS: CITALOPRAM HYDROBROMIDE 20 MG TABLET (FP) PO SCH (09:29)
[2018-09-15] MEDS: PRENATAL VITAMINS W/ FOLIC ACID TABLET (FP) PO SCH (09:29)
[2018-09-15] MEDS: guaiFENesin/D-METHORPHAN HB 10 ML UNIT-DOSE CUPS PO PRN ×2 (09:30→21:13)
[2018-09-15] MEDS: MELATONIN 5 MG TABLETS PO PRN (21:13)
[2018-09-15] MEDS: risperiDONE 3 MG TABLET PO SCH (21:13)
[2018-09-15] MEDS: traZODone HCL 100 MG TABLET (FP) PO SCH (21:13)
[2018-09-15] MEDS: THIAMINE HCL 100 MG TABLET (FP) PO SCH (21:13)
[2018-09-16] MEDS: PRENATAL VITAMINS W/ FOLIC ACID TABLET (FP) PO SCH (10:12)
[2018-09-16] MEDS: CITALOPRAM HYDROBROMIDE 20 MG TABLET (FP) PO SCH (10:12)
[2018-09-16] MEDS: guaiFENesin/D-METHORPHAN HB 10 ML UNIT-DOSE CUPS PO PRN ×2 (10:12→21:19)
[2018-09-16] MEDS: THIAMINE HCL 100 MG TABLET (FP) PO SCH (21:18)
[2018-09-16] MEDS: traZODone HCL 100 MG TABLET (FP) PO SCH (21:18)
[2018-09-16] MEDS: risperiDONE 3 MG TABLET PO SCH (21:18)
[2018-09-16] MEDS: MELATONIN 5 MG TABLETS PO PRN (21:19)
[2018-09-17] MEDS: CITALOPRAM HYDROBROMIDE 20 MG TABLET (FP) PO SCH (09:33)
[2018-09-17] MEDS: PRENATAL VITAMINS W/ FOLIC ACID TABLET (FP) PO SCH (09:33)
[2018-09-17] MEDS: guaiFENesin/D-METHORPHAN HB 10 ML UNIT-DOSE CUPS PO PRN ×2 (09:34→21:14)
[2018-09-17] MEDS: traZODone HCL 100 MG TABLET (FP) PO SCH (21:13)
[2018-09-17] MEDS: THIAMINE HCL 100 MG TABLET (FP) PO SCH (21:13)
[2018-09-17] MEDS: risperiDONE 3 MG TABLET PO SCH (21:13)
[2018-09-17] MEDS: MELATONIN 5 MG TABLETS PO PRN (21:14)
[2018-09-18] MEDS: CITALOPRAM HYDROBROMIDE 20 MG TABLET (FP) PO SCH (09:55)
[2018-09-18] MEDS: PRENATAL VITAMINS W/ FOLIC ACID TABLET (FP) PO SCH (09:55)
[2018-09-18] MEDS: guaiFENesin/D-METHORPHAN HB 10 ML UNIT-DOSE CUPS PO PRN ×3 (09:57→21:46)
[2018-09-18] MEDS: risperiDONE 3 MG TABLET PO SCH (21:46)
[2018-09-18] MEDS: THIAMINE HCL 100 MG TABLET (FP) PO SCH (21:46)
[2018-09-18] MEDS: MELATONIN 5 MG TABLETS PO PRN (21:46)
[2018-09-18] MEDS: traZODone HCL 100 MG TABLET (FP) PO SCH (21:46)
[2018-09-19] MEDS: CITALOPRAM HYDROBROMIDE 20 MG TABLET (FP) PO SCH (09:45)
[2018-09-19] MEDS: guaiFENesin/D-METHORPHAN HB 10 ML UNIT-DOSE CUPS PO PRN ×2 (09:45→21:27)
[2018-09-19] MEDS: PRENATAL VITAMINS W/ FOLIC ACID TABLET (FP) PO SCH (09:46)
--- NOTE | 2018-09-19 13:26 | PN ---
[facility] Progress Note Note: PATIENT SCHEDULED FOR DISCHARGED FOR TOMORROW, 09/20/18. PATIENT REFERRED TO PREP PROGRAM OUTPATIENT AND ENCOURAGED TO ATTEND GROUP MEETINGS TO PREVENT RELAPSE. PATIENT ALSO ENCOURAGED TO FOLLOW UP WITH PCP WITHIN ONE WEEK OF DISCHARGE FOR FOLLOW UP. PATIENT STATES HE ACCOMPLISHED ALL GOALS FOR TREATMENT AND IS MEDICALLY STABLE AT THIS TIME FOR D/C. PATIENT DENIES SI/HI. Vital Signs Temperature 97.8 F 09/19/18 06:30 Pulse Rate 89 09/19/18 06:30 Respiratory Rate 20 09/19/18 06:30 Blood Pressure 130/80 09/19/18 06:30 O2 Sat by Pulse Oximetry (%)
[2018-09-19] MEDS: THIAMINE HCL 100 MG TABLET (FP) PO SCH (21:27)
[2018-09-19] MEDS: MELATONIN 5 MG TABLETS PO PRN (21:27)
[2018-09-19] MEDS: traZODone HCL 100 MG TABLET (FP) PO SCH (21:27)
[2018-09-19] MEDS: risperiDONE 3 MG TABLET PO SCH (22:20)
[2018-09-20 06:33] VITALS: BP 130/77; PULSE 72; TEMP 98
== END 2018-09-20 09:40 | disposition home or self-care (01) | DRG 772 ==
LOC: YASAS 15:09 → Y3W 15:10
PROVIDERS: ADMIT Psychiatry & Neurology Psychiatry; ATTEND Psychiatry & Neurology Psychiatry
PROC: HZ42ZZZ Group Counseling for Substance Abuse Treatment, Cognitive-Behavioral (ICD-10-PCS; principal; 2018-08-31)
DX: F10.20 Alcohol dependence, uncomplicated (principal); F14.20 Cocaine dependence, uncomplicated; F17.213 Nicotine dependence, cigarettes, with withdrawal; F31.81 Bipolar II disorder; F25.9 Schizoaffective disorder, unspecified; F19.282 Other psychoactive substance dependence with psychoactive substance-induced sleep disorder; F19.24 Other psychoactive substance dependence with psychoactive substance-induced mood disorder
CPT/HCPCS: 90688; G0008

== ENCOUNTER 2019-10-31 08:57 | Inpatient (IN) | payer OTHER ==
--- NOTE | 2019-10-31 09:22 | BHS.RME ---
Substance Use & Tx History - Substance Use History Alcohol Frequency of use: Daily Substance route: Oral Date of Last Use: 10/30/19 Cocaine (Crack) Substance amount: 20$ Substance route: Inhalation (ex: sniffing or snorting) Date of Last Use: 10/22/19 Cannabis Substance amount: 5$ Frequency of use: Once a month Substance route: Smoking Date of Last Use: 10/24/19 - Last Treatment Date of last treatment: 08/02/19 to 08/04/19 [facility] Treatment type: Substance Use Disorder ([place]Y) Where was last treatment: Detox Physical/Psych/Mental Status - Behavior General Behavior: Increased activity (restlessness, agitation) Eye Contact: Normal Other Behaviors: Mannerisms - Cooperativeness Cooperativeness: Friendly - Thinking Thought Processes: Logical Thought content: Future oriented - Physical Health Problems Is patient presently having any pain?: No Does patient presently have any injuries (include location): No Does patient currently have a fever: No
--- NOTE | 2019-10-31 09:29 | PN ---
BHS CIWA - CIWA Score Nausea/Vomitin Muscle Tremors: 2 Anxiety: 3 Agitation: 3 Paroxysmal Sweats: No Perspiration Orientation: 0-Oriented Tacttile Disturbances: 1-Very Mild Itch/Numbness Auditory Disturbances: 0-None Visual Disturbances: 0-None Headache: 2-Mild CIWA-Ar Total Score: 13
--- NOTE | 2019-10-31 09:51 | HP ---
CIWA Score Nausea/Vomitin Muscle Tremors: 2 Anxiety: 3 Agitation: 3 Paroxysmal Sweats: No Perspiration Orientation: 0-Oriented Tacttile Disturbances: 1-Very Mild Itch/Numbness Auditory Disturbances: 0-None Visual Disturbances: 0-None Headache: 2-Mild CIWA-Ar Total Score: 13 - Admission Criteria OASAS Guidelines: Admission for Medically Managed Detox: Requires at least one of the followin. CIWA greater than 12 2. Seizures within the past 24 hours 3. Delirium tremens within the past 24 hours 4. Hallucinations within the past 24 hours 5. Acute intervention needed for co occurring medical disorder 6. Acute intervention needed for co occurring psychiatric disorder 7. Severe withdrawal that cannot be handled at a lower level of care (continued vomiting, continued diarrhea, abnormal vital signs) requiring intravenous medication and/or fluids 8. Admitting History and Physical - Admission Chief Complaint: i am here to stop drinking from alcohol History of Present Illness: this 54 years old male with alcohol dependence,cocaine and marijuana abused ,seeking detox seen in [place] last night History Source: Patient Limitations to Obtaining History: No Limitations - Past Medical History Psych: Yes: Depression - Past Surgical History Past Surgical History: Yes: None - Smoking History Smoking history: Current every day smoker Have you smoked in the past 12 months: Yes Aproximately how many cigarettes per day: 5 - Alcohol/Substance Use Hx Alcohol Use: Yes History of Substance Use: reports: Cocaine, Marijuana Date of Last Use: 10/30/19 - Social History Usual Living Arrangement: Yes: Other (homeless) Do you think of yourself as: Straight/Heterosexual ADL: Support Services Occupation: unemployed History of Recent Travel: No Admission ROS [facility] Chief Complaint: i need help to stop drinking alcohol Allergies/Adverse Reactions: Allergies Allergy/AdvReac Type Severity Reaction Status Date / Time No Known Allergies Allergy Verified 10/31/19 09:37 History of Present Illness: this 54 years old male with alcohol dependence,also cocaine and marijuana abused, multiple admissions in detox but keep relapsing last treatment in [facility] from 08/02/19 to 08/04/19 homeless unemployed weight loss depression non compliance with medication plan for rehab after detox longest sobriety 3 years Exam Limitations: No Limitations - Ebola screening Have you traveled outside of the country in the last 21 days: No Have you had contact with anyone from an Ebola affected area: No Have you been sick,other than usual withdrawal symptoms: No Do you have a fever: No - Review of Systems Constitutional: Malaise, Night Sweats, Weakness, Unintentional Wgt. Loss EENT: reports: Nose Congestion Respiratory: reports: No Symptoms reported Cardiac: reports: No Symptoms Reported GI: reports: Nausea, Poor Appetite, Vomiting, Abdominal cramping : reports: No Symptoms Reported Musculoskeletal: reports: Back Pain, Muscle Pain Integumentary: reports: Dryness Neuro: reports: Headache, Tremors Endocrine: reports: No Symptoms Reported Hematology: reports: No Symptoms Reported Psychiatric: reports: No Sypmtoms Reported, Judgement Intact, Mood/Affect Appropiate, Orientated x3, Depressed Other Systems: Reviewed and Negative Patient History - Patient Medical History Hx Anemia: No Hx Asthma: No Hx Chronic Obstructive Pulmonary Disease (COPD): No Hx Cancer: No Hx Cardiac Disorders: No Hx Congestive Heart Failure: No Hx Hypertension: No Hx Hypercholesterolemia: No Hx Pacemaker: No HX Cerebrovascular Accident: No Hx Seizures: No Hx Dementia: No Hx Diabetes: No Hx Gastrointestinal Disorders: No Hx Liver Disease: No Hx Genitourinary Disorders: No Hx Sexually Transmitted Disorders: No Hx Renal Disease (ESRD): No Hx Thyroid Disease: No Hx Human Immunodeficiency Virus (HIV): No (last 2019 negative) Hx Hepatitis C: No Hx Depression: Yes Hx Suicide Attempt: No Hx Bipolar Disorder: Yes (noncompliance) Hx Schizophrenia: No - Patient Surgical History Past Surgical History: No Hx Neurologic Surgery: No Hx Cataract Extraction: No Hx Cardiac Surgery: No Hx Lung Surgery: No Hx Breast Surgery: No Hx Breast Biopsy: No Hx Abdominal Surgery: No Hx Appendectomy: No Hx Cholecystectomy: No Hx Genitourinary Surgery: No Hx Section: No Hx Orthopedic Surgery: No Anesthesia Reaction: No - PPD History Previous Implant?: Yes Documented Results: Negative w/proof Implanted On Prior R Admission?: Yes Date: 08/29/18 Results: 0 mm PPD to be Administered?: No - Smoking Cessation Smoking history: Current every day smoker Have you smoked in the past 12 months: Yes Aproximately how many cigarettes per day: 1 Hx Chewing Tobacco Use: No Initiated information on smoking cessation: Yes 'Breaking Loose' booklet given: 10/31/19 - Substance & Tx. History Hx Alcohol Use: Yes Hx Substance Use: Yes Substance Use Type: Alcohol, Cocaine, Marijuana Hx Substance Use Treatment: Yes ([facility] 08/02/19 to 08/04/19) - Substances abused Alcohol Substance route: Oral Frequency: Daily Amount used: 1-2 pint vodka and 6 beers 16 onz Age of first use: 8 Date of last use: 10/30/19 Cocaine Substance route: Inhalation Frequency: 1-3 times last 30 days Amount used: 20$ Age of first use: 8 Date of last use: 09/26/19 Marijuana/Hashish Substance route: Smoking Frequency: 1-2 times per week Amount used: 5$ Age of first use: 8 Date of last use: 10/24/19 Admission Physical Exam [facility] - Vital Signs Vital Signs: Vital Signs Temperature 97.1 F L 10/31/19 09:37 Pulse Rate 59 L 10/31/19 09:37 Respiratory Rate 18 10/31/19 09:37 Blood Pressure 155/97 10/31/19 09:37 O2 Sat by Pulse Oximetry (%) - Physical General Appearance: Yes: Moderate Distress, Tremorous, Irritable, Anxious HEENTM: Yes: Normal ENT Inspection, KELLEY, Pharynx Normal Respiratory: Yes: Lungs Clear, Normal Breath Sounds, No Respiratory Distress Neck: Yes: Supple, Trachea in good position Breast: Yes: Within Normal Limits Cardiology: Yes: Within Normal Limits, Regular Rhythm, Regular Rate, S1, S2 Abdominal: Yes: Within Normal Limits, Normal Bowel Sounds, Non Tender, Flat, Soft Genitourinary: Yes: Within Normal Limits Back: Yes: Muscle Spasm Musculoskeletal: Yes: Back pain, Muscle Pain Extremities: Yes: Tremors Neurological: Yes: stroke coordinator II-XII NML intact, Fully Oriented, Alert, Motor Strength 5/5 Integumentary: Yes: Dry Lymphatic: Yes: Within Normal Limits - Diagnostic (1) Alcohol dependence with uncomplicated withdrawal Current Visit: Yes Status: Acute (2) Weight decreased Current Visit: No Status: Active (3) cannabis dependence Current Visit: Yes Status: Chronic (4) depression Current Visit: No Status: Active (5) Nicotine dependence Current Visit: No Status: Chronic Qualifiers: Nicotine product type: cigarettes Cleared for Admission S - Detox or Rehab [facility] Level of Care: Medically Managed Detox Regimen/Protocol: Librium Breathalyzer - Breathalyzer Breathalyzer: 0 Urine Drug Screen - Test Device Lot number: [id number] Expiration date: 03/21/21 - Control Is test valid?: Yes - Results Drug screen NEGATIVE: No Urine drug screen results: THC-Marijuana, BZO-Benzodiazepines Inpatient Rehab Admission - Rehab Decision to Admit Inpatient rehab admission?: No
[2019-10-31] MEDS ORDERED: METHOCARBAMOL 500 MG TABLET PO PRN (10:07)
[2019-10-31] MEDS ORDERED: MENTHOL/PHENOL 1 EACH UD MM PRN (10:07)
[2019-10-31] MEDS ORDERED: MAGNESIUM HYDROX 2400MG/30ML ORAL SUSPENSION 30 ML CUP PO PRN (10:07)
[2019-10-31] MEDS ORDERED: ACETAMINOPHEN 325 MG TABLET (FP) PO PRN ×2 (10:07)
[2019-10-31] MEDS ORDERED: MAGNESIUM CITRATE 300 ML BOTTLE PO PRN (10:07)
[2019-10-31] MEDS ORDERED: BISMUTH SUBSALICYLATE 262 MG/15 ML BTL PO PRN (10:07)
[2019-10-31] MEDS ORDERED: chlordiazePOXIDE HCL 25 MG CAPSULE PO PRN (10:07)
[2019-10-31] MEDS ORDERED: NICOTINE POLACRILEX 2 MG GUM BUC PRN (10:07)
[2019-10-31] MEDS ORDERED: MAG HYDROX/AL HYDROX/SIMETH 30 ML UNIT-DOSE CUP PO PRN (10:07)
[2019-10-31] MEDS ORDERED: IBUPROFEN 400 MG TABLET (FP) PO PRN (10:07)
[2019-10-31] MEDS ORDERED: ONDANSETRON *ODT* 4 MG TABLET SL ONE (11:09)
[2019-10-31] MEDS: chlordiazePOXIDE HCL 25 MG CAPSULE PO SCH ×3 (11:36→22:13)
[2019-10-31] MEDS: hydrOXYzine PAMOATE 25 MG CAPSULE (FP) PO SCH ×3 (13:52→22:18)
[2019-10-31 14:38] LABS: HEMATOCRIT 40.8 % (35.4-49); HEMOGLOBIN 13.9 GM/dL (11.7-16.9); MCH 28.9 pg (25.7-33.7); MCHC 34.1 g/dl (32.0-35.9); MEAN CELL VOLUME 84.9 fl (80-96); MEAN PLT VOLUME 7.7 fl (7.5-11.1); PLATELET COUNT 373 K/MM3 (134-434); RBC 4.81 M/mm3 (4.00-5.60); WHITE BLOOD COUNT 7.2 K/mm3 (4.0-10.0)
[2019-10-31 14:53] LABS: ALBUMIN 3.4 g/dl (3.4-5.0); BLOOD UREA NITROGEN 12.6 mg/dL (7-18); CALCIUM 8.3 mg/dL (8.5-10.1); CREATININE 0.9 mg/dL (0.55-1.3); POTASSIUM 3.5 mmol/L (3.5-5.1); TOT PROT 6.7 g/dl (6.4-8.2)
--- NOTE | 2019-10-31 17:37 | CONSULT ---
[facility] Psychiatric Consult - Data Date of interview: 10/31/19 Admission source: [facility] Identifying data: Readmission to [address] [place] [address] for this 54 y/o male self- referred for detoxification treatment. ALEKSEY issues : alcohol, nicotine, crack/cocaine, cannabis. Patient is single, no dependents, homeless, unemployed and deprived of any source of income (SSI benefits revoked). Substance Abuse History: Discussed with the patient. ALEKSEY profile as follows : Smoking history: Current every day smoker. Have you smoked in the past 12 months: Yes. Aproximately how many cigarettes per day: 1. Hx Chewing Tobacco Use: No. Initiated information on smoking cessation: Yes. 'Breaking Loose' booklet given: 10/31/19. - Substance & Tx. History. Hx Alcohol Use: Yes. Hx Substance Use: Yes. Substance Use Type: Alcohol, Cocaine, Marijuana. Hx Substance Use Treatment: Yes ([facility] 08/02/19 to 08/04/19). - Substances abused. Alcohol. Substance route: Oral. Frequency: Daily. Amount used: 1-2 pint vodka and 6 beers 16 onz. Age of first use: 8. Date of last use: 10/30/19. Cocaine. Substance route: Inhalation. Frequency: 1-3 times last 30 days. Amount used: 20$. Age of first use: 8. Date of last use: 09/26/19. Marijuana/Hashish. Substance route: Smoking. Frequency: 1-2 times per week. Amount used: 5$. Age of first use: 8. Date of last use: 10/24/19 Medical History: Patient endorses good general health. Psychiatric History: Patient is a frequent user of ALEKSE[facility] treatment services at [facility]. He reports a history of multiple psychiatric hospitalizations ([facility], [facility], [facility], [facility], [facility], [facility], [facility] Historically diagnosed with Bipolar Disorder. Mr Pierce reports chronic non-adherence to medications and OPD care. " I usually take medications when I am admitted to hospitals." Patient is known to several [facility] [place]. Does not follow-up with psychiatric aftercare. Patient denies history of suicide attempts. Physical/Sexual Abuse/Trauma History: Patient denies. Additional Comment: Urine drug screen results: THC-Marijuana, BZO- Benzodiazepines. Noted. Mental Status Exam - Mental Status Exam Alert and Oriented to: Time, Place, Person Cognitive Function: Good Patient Appearance: Well Groomed Mood: Withdrawn Affect: Mood Congruent, Constricted Patient Behavior: Fatigued, Appropriate, Cooperative Speech Pattern: Clear, Appropriate Voice Loudness: Normal Thought Process: Goal Oriented Thought Disorder: Not Present Hallucinations: Denies Suicidal Ideation: Denies Homicidal Ideation: Denies Insight/Judgement: Poor Sleep: Poorly, Difficulty falling asleep Appetite: Good Gait/Station: Normal Psychiatric Findings - Problem List ([place] 1, 2,3) (1) Alcohol dependence with uncomplicated withdrawal Current Visit: Yes Status: Acute (2) cannabis dependence Current Visit: Yes Status: Chronic (3) Cocaine dependence Current Visit: Yes Status: Chronic (4) Substance induced mood disorder Current Visit: Yes Status: Chronic (5) Schizoaffective disorder Current Visit: Yes Status: Chronic Comment: As per history. (6) Insomnia Current Visit: Yes Status: Chronic (7) Non-compliance Current Visit: Yes Status: Chronic - Initial Treatment Plan Initial Treatment Plan: Contact made with pharmacist at [facility] at [phone] : most recent refills were on 09/23/19 for remeron 15 mg/hs + campral (333 x 2)/tid + citalopram 20 mg/day + gabapentin 100 mg/tid. Psychoeducation. Sleep hygiene. Detoxification. Support. Insomnia is addressed with mirtazapine 15 mg po hs. Side effects/benefits discussed with the patient. Mr Pierce is in agreement with this plan of care. Observation.
[2019-10-31] MEDS: MIRTAZAPINE 15 MG TABLET (FP) PO SCH (22:13)
[2019-10-31] MEDS: MELATONIN 5 MG TABLETS PO SCH (22:14)
[2019-10-31] MEDS: THIAMINE HCL 100 MG TABLET (FP) PO SCH (22:18)
[2019-11-01] MEDS: chlordiazePOXIDE HCL 25 MG CAPSULE PO SCH ×4 (05:42→22:23)
[2019-11-01] MEDS: hydrOXYzine PAMOATE 25 MG CAPSULE (FP) PO SCH ×5 (07:17→22:23)
[2019-11-01] MEDS: PRENATAL VITAMINS W/ FOLIC ACID TABLET (FP) PO SCH (10:04)
[2019-11-01] MEDS: NICOTINE 7 MG/24 HOURS TOPICAL PATCH TD SCH (10:04)
[2019-11-01] MEDS ORDERED: PNEUMOC 13-VAL CONJ-DIP CRM/PF 0.5 ML DISP.SYRIN IM ONE (12:00)
[2019-11-01] MEDS ORDERED: PNEUMOCOCCAL 23 VACCINE 0.5 ML VIAL IM ONE (12:00)
--- NOTE | 2019-11-01 12:21 | PN ---
[facility] CIWA - CIWA Score Nausea/Vomitin-Mild Nausea/No Vomiting Muscle Tremors: 4-Moderate,w/Arms Extend Anxiety: 4-Mod. Anxious/Guarded Agitation: 0-Normal Activity Paroxysmal Sweats: 2 Orientation: 0-Oriented Tacttile Disturbances: 0-None Auditory Disturbances: 0-None Visual Disturbances: 0-None Headache: 0-None Present CIWA-Ar Total Score: 11 S Progress Note (SOAP) Subjective: 54 years old male admitted on 10/31/19 for alcohol withdrawal sx management treating with librium detox regiment feeling ok today ate breakfast tolerated food and fluid well social with peers in day room Objective: 11/01/19 12:18 Vital Signs Temperature 98.2 F 11/01/19 09:02 Pulse Rate 86 11/01/19 09:02 Respiratory Rate 16 11/01/19 09:02 Blood Pressure 125/78 11/01/19 09:02 O2 Sat by Pulse Oximetry (%) Laboratory Last Values WBC 7.2 K/mm3 (4.0-10.0) 10/31/19 10:30 RBC 4.81 M/mm3 (4.00-5.60) 10/31/19 10:30 Hgb 13.9 GM/dL (11.7-16.9) 10/31/19 10:30 Hct 40.8 % (35.4-49) 10/31/19 10:30 MCV 84.9 fl (80-96) 10/31/19 10:30 MCH 28.9 pg (25.7-33.7) 10/31/19 10:30 MCHC 34.1 g/dl (32.0-35.9) 10/31/19 10:30 RDW 14.0 % (11.9-15.9) 10/31/19 10:30 Plt Count 373 K/MM3 (134-434) 10/31/19 10:30 MPV 7.7 fl (7.5-11.1) 10/31/19 10:30 Sodium 139 mmol/L (136-145) 10/31/19 10:30 Potassium 3.5 mmol/L (3.5-5.1) 10/31/19 10:30 Chloride 104 mmol/L (98-107) 10/31/19 10:30 Carbon Dioxide 27 mmol/L (21-32) 10/31/19 10:30 Anion Gap 8 MMOL/L (8-16) 10/31/19 10:30 BUN 12.6 mg/dL (7-18) 10/31/19 10:30 Creatinine 0.9 mg/dL (0.55-1.3) 10/31/19 10:30 Est GFR (CKD-EPI)AfAm 110.27 10/31/19 10:30 Est GFR (CKD-EPI)NonAf 95.14 10/31/19 10:30 Random Glucose 175 mg/dL (74-106) H 10/31/19 10:30 Calcium 8.3 mg/dL (8.5-10.1) L 10/31/19 10:30 Total Bilirubin 1.0 mg/dL (0.2-1) 10/31/19 10:30 AST 50 U/L (15-37) H 10/31/19 10:30 ALT 49 U/L (13-61) 10/31/19 10:30 Alkaline Phosphatase 80 U/L (45-117) 10/31/19 10:30 Total Protein 6.7 g/dl (6.4-8.2) 10/31/19 10:30 Albumin 3.4 g/dl (3.4-5.0) 10/31/19 10:30 RPR Titer Nonreactive (NONREACTIVE) 10/31/19 10:30 HIV Ag/Ab Combo Qual Negative (NEGATIVE) 10/31/19 10:30 lab noted 11/01/19 12:21fasting glucose Assessment: 11/01/19 12:21 alcohol withdrawal Plan: librium regiment
[2019-11-01 17:20] LABS: URINE APPEARANCE CLEAR; URINE BILIRUBIN NEGATIVE (NEGATIVE); URINE COLOR YELLOW; URINE GLUCOSE (UA) NEGATIVE (NEGATIVE); URINE KETONE NEGATIVE (NEGATIVE); URINE LEUK ESTERASE NEGATIVE (NEGATIVE); URINE NITRITE NEGATIVE (NEGATIVE); URINE PROTEIN NEGATIVE (NEGATIVE); URINE UROBILINOGEN 0.2 mg/dL (0.2-1.0)
[2019-11-01] MEDS: MIRTAZAPINE 15 MG TABLET (FP) PO SCH (22:23)
[2019-11-01] MEDS: THIAMINE HCL 100 MG TABLET (FP) PO SCH (22:23)
[2019-11-01] MEDS: MELATONIN 5 MG TABLETS PO SCH (22:23)
[2019-11-02] MEDS: chlordiazePOXIDE HCL 25 MG CAPSULE PO SCH ×4 (07:22→22:06)
[2019-11-02] MEDS: hydrOXYzine PAMOATE 25 MG CAPSULE (FP) PO SCH ×5 (07:23→22:06)
[2019-11-02] MEDS: PRENATAL VITAMINS W/ FOLIC ACID TABLET (FP) PO SCH (10:09)
[2019-11-02] MEDS: NICOTINE 21 MG/24 HOURS TOPICAL PATCH TD SCH (10:44)
[2019-11-02] MEDS: NICOTINE 7 MG/24 HOURS TOPICAL PATCH TD SCH (10:46)
--- NOTE | 2019-11-02 11:32 | PN ---
S CIWA - CIWA Score Nausea/Vomitin-No Nausea/No Vomiting Muscle Tremors: 1-None Visible, but [place] Anxiety: 1-Mildly Anxious Agitation: 0-Normal Activity Paroxysmal Sweats: 1-Minimal Palms Moist Orientation: 0-Oriented Tacttile Disturbances: 0-None Auditory Disturbances: 1-Very Mild Visual Disturbances: 1-Very Mild Sensitivity Headache: 0-None Present CIWA-Ar Total Score: 5 BHS Progress Note (SOAP) Subjective: Tolerating detox well Objective: 11/02/19 11:29 Laboratory Tests 10/31/19 10/31/19 10/31/19 10:30 10:30 10:30 WBC 7.2 RBC 4.81 Hgb 13.9 Hct 40.8 MCV 84.9 MCH 28.9 MCHC 34.1 RDW 14.0 Plt Count 373 MPV 7.7 Sodium 139 Potassium 3.5 Chloride 104 Carbon Dioxide 27 Anion Gap 8 BUN 12.6 Creatinine 0.9 Est GFR (CKD-EPI)AfAm 110.27 Est GFR (CKD-EPI)NonAf 95.14 Random Glucose 175 H Fasting Glucose Calcium 8.3 L Total Bilirubin 1.0 AST 50 H ALT 49 Alkaline Phosphatase 80 Total Protein 6.7 Albumin 3.4 Urine Color Urine Appearance Urine pH Ur Specific [place] Urine Protein Urine Glucose (UA) Urine Ketones Urine Blood Urine Nitrite Urine Bilirubin Urine Urobilinogen Ur Leukocyte Esterase RPR Titer Nonreactive HIV Ag/Ab Combo Qual 10/31/19 11/01/19 11/02/19 10:30 14:30 07:30 WBC RBC Hgb Hct MCV MCH MCHC RDW Plt Count MPV Sodium Potassium Chloride Carbon Dioxide Anion Gap BUN Creatinine Est GFR (CKD-EPI)AfAm Est GFR (CKD-EPI)NonAf Random Glucose Fasting Glucose 129 H Calcium Total Bilirubin AST ALT Alkaline Phosphatase Total Protein Albumin Urine Color Yellow Urine Appearance Clear Urine pH 8.0 D Ur Specific [place] 1.014 Urine Protein Negative Urine Glucose (UA) Negative Urine Ketones Negative Urine Blood Negative Urine Nitrite Negative Urine Bilirubin Negative Urine Urobilinogen 0.2 Ur Leukocyte Esterase Negative RPR Titer HIV Ag/Ab Combo Qual Negative PE Gnl: WDWN, in bed, in mild distress MS: awake, alert, nl language Motor: intact strength Coord: nl Assessment: 11/02/19 11:30 1. Alcohol use disorder 2. Seen by Psychiatry, insomnia, meds checked Plan: 1. continue Librium withdrawal protocol 2. on mirtazipine per Psychiatry
[2019-11-02] MEDS: MELATONIN 5 MG TABLETS PO SCH (22:06)
[2019-11-02] MEDS: THIAMINE HCL 100 MG TABLET (FP) PO SCH (22:06)
[2019-11-02] MEDS: MIRTAZAPINE 15 MG TABLET (FP) PO SCH (22:06)
[2019-11-03] MEDS ORDERED: chlordiazePOXIDE HCL 10 MG CAPSULE PO PRN
[2019-11-03] MEDS: hydrOXYzine PAMOATE 25 MG CAPSULE (FP) PO SCH ×5 (06:41→22:08)
[2019-11-03] MEDS: chlordiazePOXIDE HCL 10 MG CAPSULE PO SCH ×4 (06:41→22:08)
[2019-11-03] MEDS: PRENATAL VITAMINS W/ FOLIC ACID TABLET (FP) PO SCH (10:03)
[2019-11-03] MEDS: NICOTINE 21 MG/24 HOURS TOPICAL PATCH TD SCH (10:04)
--- NOTE | 2019-11-03 11:12 | PN ---
S CIWA - CIWA Score Nausea/Vomitin-No Nausea/No Vomiting Muscle Tremors: None Anxiety: 3 Agitation: 0-Normal Activity Paroxysmal Sweats: 3 Orientation: 0-Oriented Tacttile Disturbances: 0-None Auditory Disturbances: 0-None Visual Disturbances: 0-None Headache: 0-None Present CIWA-Ar Total Score: 6 BHS Progress Note (SOAP) Subjective: c/o sweats, anxiety, and headache. Objective: 11/03/19 11:09 Vital Signs 11/03/19 11/03/19 11/03/19 03:32 07:56 08:42 Temperature 97.8 F 97.7 F Pulse Rate 78 82 Respiratory 18 18 17 Rate Blood Pressure 97/64 116/79 Laboratory Last Values WBC 7.2 K/mm3 (4.0-10.0) 10/31/19 10:30 RBC 4.81 M/mm3 (4.00-5.60) 10/31/19 10:30 Hgb 13.9 GM/dL (11.7-16.9) 10/31/19 10:30 Hct 40.8 % (35.4-49) 10/31/19 10:30 MCV 84.9 fl (80-96) 10/31/19 10:30 MCH 28.9 pg (25.7-33.7) 10/31/19 10:30 MCHC 34.1 g/dl (32.0-35.9) 10/31/19 10:30 RDW 14.0 % (11.9-15.9) 10/31/19 10:30 Plt Count 373 K/MM3 (134-434) 10/31/19 10:30 MPV 7.7 fl (7.5-11.1) 10/31/19 10:30 Sodium 139 mmol/L (136-145) 10/31/19 10:30 Potassium 3.5 mmol/L (3.5-5.1) 10/31/19 10:30 Chloride 104 mmol/L (98-107) 10/31/19 10:30 Carbon Dioxide 27 mmol/L (21-32) 10/31/19 10:30 Anion Gap 8 MMOL/L (8-16) 10/31/19 10:30 BUN 12.6 mg/dL (7-18) 10/31/19 10:30 Creatinine 0.9 mg/dL (0.55-1.3) 10/31/19 10:30 Est GFR (CKD-EPI)AfAm 110.27 10/31/19 10:30 Est GFR (CKD-EPI)NonAf 95.14 10/31/19 10:30 Random Glucose 175 mg/dL (74-106) H 10/31/19 10:30 Fasting Glucose 129 mg/dL (74-106) H 11/02/19 07:30 Calcium 8.3 mg/dL (8.5-10.1) L 10/31/19 10:30 Total Bilirubin 1.0 mg/dL (0.2-1) 10/31/19 10:30 AST 50 U/L (15-37) H 10/31/19 10:30 ALT 49 U/L (13-61) 10/31/19 10:30 Alkaline Phosphatase 80 U/L (45-117) 10/31/19 10:30 Total Protein 6.7 g/dl (6.4-8.2) 10/31/19 10:30 Albumin 3.4 g/dl (3.4-5.0) 10/31/19 10:30 Urine Color Yellow 11/01/19 14:30 Urine Appearance Clear 11/01/19 14:30 Urine pH 8.0 (5.0-8.0) D 11/01/19 14:30 Ur Specific [place] 1.014 (1.010-1.035) 11/01/19 14:30 Urine Protein Negative (NEGATIVE) 11/01/19 14:30 Urine Glucose (UA) Negative (NEGATIVE) 11/01/19 14:30 Urine Ketones Negative (NEGATIVE) 11/01/19 14:30 Urine Blood Negative (NEGATIVE) 11/01/19 14:30 Urine Nitrite Negative (NEGATIVE) 11/01/19 14:30 Urine Bilirubin Negative (NEGATIVE) 11/01/19 14:30 Urine Urobilinogen 0.2 mg/dL (0.2-1.0) 11/01/19 14:30 Ur Leukocyte Esterase Negative (NEGATIVE) 11/01/19 14:30 RPR Titer Nonreactive (NONREACTIVE) 10/31/19 10:30 HIV Ag/Ab Combo Qual Negative (NEGATIVE) 10/31/19 10:30 Labs noted. Assessment: 11/03/19 11:10 AOX3, in no acute respiratory distress. Full ROM, ambulating in the unit. Withdrawal symptoms. Plan: continue detox.
[2019-11-03] MEDS: MIRTAZAPINE 15 MG TABLET (FP) PO SCH (22:08)
[2019-11-03] MEDS: MELATONIN 5 MG TABLETS PO SCH (22:08)
[2019-11-03] MEDS: THIAMINE HCL 100 MG TABLET (FP) PO SCH (22:08)
[2019-11-04] MEDS: chlordiazePOXIDE HCL 10 MG CAPSULE PO SCH ×2 (05:57→17:36)
[2019-11-04] MEDS: hydrOXYzine PAMOATE 25 MG CAPSULE (FP) PO SCH ×5 (05:57→22:05)
[2019-11-04] MEDS: PRENATAL VITAMINS W/ FOLIC ACID TABLET (FP) PO SCH (10:23)
[2019-11-04] MEDS: NICOTINE 21 MG/24 HOURS TOPICAL PATCH TD SCH (10:23)
--- NOTE | 2019-11-04 14:58 | PN ---
[facility] CIWA - CIWA Score Nausea/Vomitin-No Nausea/No Vomiting Muscle Tremors: 1-None Visible, but [place] Anxiety: 0-No Anxiety, at Ease Agitation: 0-Normal Activity Paroxysmal Sweats: 1-Minimal Palms Moist Orientation: 0-Oriented Tacttile Disturbances: 0-None Auditory Disturbances: 0-None Visual Disturbances: 1-Very Mild Sensitivity Headache: 0-None Present CIWA-Ar Total Score: 3 S Progress Note (SOAP) Subjective: 54 years old male admitted on 10/31/19 for alcohol withdrawal sx management treating wtih librium detox regiment feeling better today less tremor participating in behavior and psychosocial therapies Objective: 11/04/19 15:36 Vital Signs Temperature 97.7 F 11/04/19 12:33 Pulse Rate 86 11/04/19 12:33 Respiratory Rate 18 11/04/19 12:33 Blood Pressure 126/84 11/04/19 12:33 O2 Sat by Pulse Oximetry (%) Laboratory Last Values WBC 7.2 K/mm3 (4.0-10.0) 10/31/19 10:30 RBC 4.81 M/mm3 (4.00-5.60) 10/31/19 10:30 Hgb 13.9 GM/dL (11.7-16.9) 10/31/19 10:30 Hct 40.8 % (35.4-49) 10/31/19 10:30 MCV 84.9 fl (80-96) 10/31/19 10:30 MCH 28.9 pg (25.7-33.7) 10/31/19 10:30 MCHC 34.1 g/dl (32.0-35.9) 10/31/19 10:30 RDW 14.0 % (11.9-15.9) 10/31/19 10:30 Plt Count 373 K/MM3 (134-434) 10/31/19 10:30 MPV 7.7 fl (7.5-11.1) 10/31/19 10:30 Sodium 139 mmol/L (136-145) 10/31/19 10:30 Potassium 3.5 mmol/L (3.5-5.1) 10/31/19 10:30 Chloride 104 mmol/L (98-107) 10/31/19 10:30 Carbon Dioxide 27 mmol/L (21-32) 10/31/19 10:30 Anion Gap 8 MMOL/L (8-16) 10/31/19 10:30 BUN 12.6 mg/dL (7-18) 10/31/19 10:30 Creatinine 0.9 mg/dL (0.55-1.3) 10/31/19 10:30 Est GFR (CKD-EPI)AfAm 110.27 10/31/19 10:30 Est GFR (CKD-EPI)NonAf 95.14 10/31/19 10:30 Random Glucose 175 mg/dL (74-106) H 10/31/19 10:30 Fasting Glucose 129 mg/dL (74-106) H 11/02/19 07:30 Calcium 8.3 mg/dL (8.5-10.1) L 10/31/19 10:30 Total Bilirubin 1.0 mg/dL (0.2-1) 10/31/19 10:30 AST 50 U/L (15-37) H 10/31/19 10:30 ALT 49 U/L (13-61) 10/31/19 10:30 Alkaline Phosphatase 80 U/L (45-117) 10/31/19 10:30 Total Protein 6.7 g/dl (6.4-8.2) 10/31/19 10:30 Albumin 3.4 g/dl (3.4-5.0) 10/31/19 10:30 Urine Color Yellow 11/01/19 14:30 Urine Appearance Clear 11/01/19 14:30 Urine pH 8.0 (5.0-8.0) D 11/01/19 14:30 Ur Specific [place] 1.014 (1.010-1.035) 11/01/19 14:30 Urine Protein Negative (NEGATIVE) 11/01/19 14:30 Urine Glucose (UA) Negative (NEGATIVE) 11/01/19 14:30 Urine Ketones Negative (NEGATIVE) 11/01/19 14:30 Urine Blood Negative (NEGATIVE) 11/01/19 14:30 Urine Nitrite Negative (NEGATIVE) 11/01/19 14:30 Urine Bilirubin Negative (NEGATIVE) 11/01/19 14:30 Urine Urobilinogen 0.2 mg/dL (0.2-1.0) 11/01/19 14:30 Ur Leukocyte Esterase Negative (NEGATIVE) 11/01/19 14:30 RPR Titer Nonreactive (NONREACTIVE) 10/31/19 10:30 HIV Ag/Ab Combo Qual Negative (NEGATIVE) 10/31/19 10:30 lab noted 11/04/19 15:36 encourage perform hgb [facility]c [facility] Assessment: 11/04/19 15:37 alcohol withdrawal Plan: librium regiment
[2019-11-04] MEDS: MIRTAZAPINE 15 MG TABLET (FP) PO SCH (22:05)
[2019-11-04] MEDS: THIAMINE HCL 100 MG TABLET (FP) PO SCH (22:05)
[2019-11-04] MEDS: MELATONIN 5 MG TABLETS PO SCH (22:06)
[2019-11-05] MEDS ORDERED: chlordiazePOXIDE HCL 10 MG CAPSULE PO ONE (05:00)
[2019-11-05] MEDS: hydrOXYzine PAMOATE 25 MG CAPSULE (FP) PO SCH (06:08)
[2019-11-05 08:24] VITALS: BP 82/51; PULSE 70; TEMP 96.9
--- NOTE | 2019-11-05 14:24 | DS ---
[facility] Detox Discharge Summary Admission Date: 10/31/19 Discharge Date: 11/05/19 - History Present History: Alcohol Dependence Additional Comments: 54 years old male admitted on 10/31/19 for alcohol withdrawal sx management treated with librium detox regiment Mr Pierce has completed librium regiment and is tolerated well seen by psychiatrist resume remeron celexa gabapentin alert oriented x 3 respiratory clear lung sounds bilaterally on auscultation abdomen soft no rebound tenderness skin warm and dry Pertinent Past History: time for discharge 44 minutes - Physical Exam Results Vital Signs: Vital Signs Temperature 96.9 F L 11/05/19 05:37 Pulse Rate 70 11/05/19 05:37 Respiratory Rate 18 11/05/19 05:37 Blood Pressure 82/51 L 11/05/19 05:37 O2 Sat by Pulse Oximetry (%) Pertinent Admission Physical Exam Findings: alcohol withdrawal Vital Signs Temperature 96.9 F L 11/05/19 05:37 Pulse Rate 70 11/05/19 05:37 Respiratory Rate 18 11/05/19 05:37 Blood Pressure 82/51 L 11/05/19 05:37 O2 Sat by Pulse Oximetry (%) Laboratory Last Values WBC 7.2 K/mm3 (4.0-10.0) 10/31/19 10:30 RBC 4.81 M/mm3 (4.00-5.60) 10/31/19 10:30 Hgb 13.9 GM/dL (11.7-16.9) 10/31/19 10:30 Hct 40.8 % (35.4-49) 10/31/19 10:30 MCV 84.9 fl (80-96) 10/31/19 10:30 MCH 28.9 pg (25.7-33.7) 10/31/19 10:30 MCHC 34.1 g/dl (32.0-35.9) 10/31/19 10:30 RDW 14.0 % (11.9-15.9) 10/31/19 10:30 Plt Count 373 K/MM3 (134-434) 10/31/19 10:30 MPV 7.7 fl (7.5-11.1) 10/31/19 10:30 Sodium 139 mmol/L (136-145) 10/31/19 10:30 Potassium 3.5 mmol/L (3.5-5.1) 10/31/19 10:30 Chloride 104 mmol/L (98-107) 10/31/19 10:30 Carbon Dioxide 27 mmol/L (21-32) 10/31/19 10:30 Anion Gap 8 MMOL/L (8-16) 10/31/19 10:30 BUN 12.6 mg/dL (7-18) 10/31/19 10:30 Creatinine 0.9 mg/dL (0.55-1.3) 10/31/19 10:30 Est GFR (CKD-EPI)AfAm 110.27 10/31/19 10:30 Est GFR (CKD-EPI)NonAf 95.14 10/31/19 10:30 Random Glucose 175 mg/dL (74-106) H 10/31/19 10:30 Fasting Glucose 129 mg/dL (74-106) H 11/02/19 07:30 Calcium 8.3 mg/dL (8.5-10.1) L 10/31/19 10:30 Total Bilirubin 1.0 mg/dL (0.2-1) 10/31/19 10:30 AST 50 U/L (15-37) H 10/31/19 10:30 ALT 49 U/L (13-61) 10/31/19 10:30 Alkaline Phosphatase 80 U/L (45-117) 10/31/19 10:30 Total Protein 6.7 g/dl (6.4-8.2) 10/31/19 10:30 Albumin 3.4 g/dl (3.4-5.0) 10/31/19 10:30 Urine Color Yellow 11/01/19 14:30 Urine Appearance Clear 11/01/19 14:30 Urine pH 8.0 (5.0-8.0) D 11/01/19 14:30 Ur Specific [place] 1.014 (1.010-1.035) 11/01/19 14:30 Urine Protein Negative (NEGATIVE) 11/01/19 14:30 Urine Glucose (UA) Negative (NEGATIVE) 11/01/19 14:30 Urine Ketones Negative (NEGATIVE) 11/01/19 14:30 Urine Blood Negative (NEGATIVE) 11/01/19 14:30 Urine Nitrite Negative (NEGATIVE) 11/01/19 14:30 Urine Bilirubin Negative (NEGATIVE) 11/01/19 14:30 Urine Urobilinogen 0.2 mg/dL (0.2-1.0) 11/01/19 14:30 Ur Leukocyte Esterase Negative (NEGATIVE) 11/01/19 14:30 RPR Titer Nonreactive (NONREACTIVE) 10/31/19 10:30 HIV Ag/Ab Combo Qual Negative (NEGATIVE) 10/31/19 10:30 lab noted patient agrees returning to [facility] for hgb a1c rule out diabetes - Treatment Hospital Course: Detox Protocol Followed, Detoxed Safely, Responded well, Discharged Condition Good, Rehab Referral Accepted Patient has Accepted [facility] Ref[facility] - Medication Discharge Medications: Ambulatory Orders Citalopram Hydrobromide [Celexa -] 20 mg PO DAILY #30 tablet 09/13/18 Acamprosate Calcium [Campral -] 666 mg PO TID 08/30/19 Folic Acid 1 mg PO DAILY 08/30/19 Gabapentin [Neurontin -] 100 mg PO Q8H 08/30/19 Ibuprofen 400 mg PO PRN PRN 08/30/19 Mirtazapine 15 mg PO HS 08/30/19 Multivitamins [Multivit ([facility] Formulary)] 1 tab PO DAILY 08/30/19 - Diagnosis (1) Alcohol dependence with uncomplicated withdrawal Status: Acute (2) Nicotine dependence Status: Acute Qualifiers: Nicotine product type: cigarettes Substance use status: in withdrawal Qualified Code(s): F17.213 - Nicotine dependence, cigarettes, with withdrawal (3) Substance induced mood disorder Status: Suspected - AMA Did Patient Leave Against Medical Advice: No CIWA Score - CIWA Score Nausea/Vomitin-No Nausea/No Vomiting Muscle Tremors: 1-None Visible, but [place] Anxiety: 0-No Anxiety, at Ease Agitation: 0-Normal Activity Paroxysmal Sweats: No Perspiration Orientation: 0-Oriented Tacttile Disturbances: 0-None Auditory Disturbances: 0-None Visual Disturbances: 0-None Headache: 0-None Present CIWA-Ar Total Score: 1
== END 2019-11-05 09:11 | disposition home or self-care (01) | DRG 774 ==
LOC: YASAS 08:57 → Y3N 10:43
PROVIDERS: ADMIT Allergy & Immunology; ATTEND Allergy & Immunology
PROC: HZ2ZZZZ Detoxification Services for Substance Abuse Treatment (ICD-10-PCS; principal; 2019-10-31)
DX: F10.230 Alcohol dependence with withdrawal, uncomplicated (principal); F14.20 Cocaine dependence, uncomplicated; F12.20 Cannabis dependence, uncomplicated; F17.213 Nicotine dependence, cigarettes, with withdrawal; F31.9 Bipolar disorder, unspecified; F19.24 Other psychoactive substance dependence with psychoactive substance-induced mood disorder; F25.9 Schizoaffective disorder, unspecified; G47.00 Insomnia, unspecified; R63.4 Abnormal weight loss; Z68.24 Body mass index [BMI] 24.0-24.9, adult; Z56.0 Unemployment, unspecified; Z59.0 Homelessness; Z91.19 Patient's noncompliance with other medical treatment and regimen
CPT/HCPCS: 36415; 80053; 81003; 82947; 85027; 86593; 87389; 90732; G0009; Q0162

== ENCOUNTER 2020-03-14 09:09 | Inpatient (IN) | payer OTHER ==
--- NOTE | 2020-03-14 09:24 | BHS.RME ---
Substance Use & Tx History - Substance Use History Alcohol Substance amount: 1 pint vodka Frequency of use: Daily Substance route: Oral Date of Last Use: 03/13/20 Marijuana/Hashish Substance amount: $5 Frequency of use: Less than 3 times per week Substance route: Smoking Date of Last Use: 03/11/20 Nicotine Substance amount: 1 cigg Frequency of use: Daily Substance route: Smoking Date of Last Use: 03/13/20 Physical/Psych/Mental Status - Behavior General Behavior: Decreased activity Eye Contact: Normal - Cooperativeness Cooperativeness: Cooperative - Thinking Thought Processes: Tight, Logical, Goal Directed - Physical Health Problems Is patient presently having any pain?: No Does patient presently have any injuries (include location): No Does patient currently have a fever: No Is patient : No CIWA Nausea/Vomitin-No Nausea/No Vomiting Muscle Tremors: 2 Anxiety: 4-Mod. Anxious/Guarded Agitation: 1-Slight > Activity Paroxysmal Sweats: 1-Minimal Palms Moist Orientation: 1-Uncertain about Date Tacttile Disturbances: 0-None Auditory Disturbances: 0-None Visual Disturbances: 0-None Headache: 0-None Present (just drank prior to coming) CIWA-Ar Total Score: 9
--- NOTE | 2020-03-14 10:34 | HP ---
CIWA Score Nausea/Vomitin-No Nausea/No Vomiting Muscle Tremors: 2 Anxiety: 4-Mod. Anxious/Guarded Agitation: 1-Slight > Activity Paroxysmal Sweats: 1-Minimal Palms Moist Orientation: 1-Uncertain about Date Tacttile Disturbances: 0-None Auditory Disturbances: 0-None Visual Disturbances: 0-None Headache: 0-None Present (just drank prior to coming) CIWA-Ar Total Score: 9 - Admission Criteria OASAS Guidelines: Admission for Medically Managed Detox: Requires at least one of the followin. CIWA greater than 12 2. Seizures within the past 24 hours 3. Delirium tremens within the past 24 hours 4. Hallucinations within the past 24 hours 5. Acute intervention needed for co occurring medical disorder 6. Acute intervention needed for co occurring psychiatric disorder 7. Severe withdrawal that cannot be handled at a lower level of care (continued vomiting, continued diarrhea, abnormal vital signs) requiring intravenous medication and/or fluids 8. Admitting History and Physical - Admission Chief Complaint: " I need to stop drinking" History of Present Illness: 54 year old male with history of alcohol dependence with mild withdrawal, cannabis use disorder and nicotine dependence seeking detox from alcohol. He was last here in 10/30-11/05/19 and completed detox but didn't follow up with rehab. 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 He meets criteria for detox as he has poor recovery environment and has untreated psychiatric co-morbidity. - Past Medical History Psych: Yes: Depression - Past Surgical History Past Surgical History: Yes: None - Smoking History Smoking history: Current every day smoker Have you smoked in the past 12 months: Yes Aproximately how many cigarettes per day: 1 - Alcohol/Substance Use Hx Alcohol Use: Yes History of Substance Use: reports: Cocaine, Marijuana Date of Last Use: 10/30/19 - Social History ADL: Support Services Occupation: unemployed History of Recent Travel: No Admission [facility] Allergies/Adverse Reactions: Allergies Allergy/AdvReac Type Severity Reaction Status Date / Time No Known Allergies Allergy Verified 10/31/19 09:37 Exam Limitations: No Limitations - Ebola screening Have you traveled outside of the country in the last 21 days: No Have you had contact with anyone from an Ebola affected area: No Have you been sick,other than usual withdrawal symptoms: No Do you have a fever: No - Review of Systems Constitutional: No Symptoms Reported, Chills, Diaphoresis, Unintentional Wgt. Loss EENT: reports: No Symptoms Reported Respiratory: reports: No Symptoms reported Cardiac: reports: No Symptoms Reported GI: reports: No Symptoms Reported : reports: No Symptoms Reported Musculoskeletal: reports: No Symptoms Reported Integumentary: reports: No Symptoms Reported Neuro: reports: No Symptoms reported Endocrine: reports: No Symptoms Reported Hematology: reports: No Symptoms Reported Psychiatric: reports: Judgement Intact, Mood/Affect Appropiate, Orientated x3, Agitated, Anxious Other Systems: Reviewed and Negative Patient History - Patient Medical History Hx Anemia: No Hx Asthma: No Hx Chronic Obstructive Pulmonary Disease (COPD): No Hx Cancer: No Hx Cardiac Disorders: No Hx Congestive Heart Failure: No Hx Hypertension: No Hx Hypercholesterolemia: No Hx Pacemaker: No HX Cerebrovascular Accident: No Hx Seizures: No Hx Dementia: No Hx Diabetes: No Hx Gastrointestinal Disorders: No Hx Liver Disease: No Hx Genitourinary Disorders: No Hx Sexually Transmitted Disorders: No Hx Renal Disease (ESRD): No Hx Thyroid Disease: No Hx Human Immunodeficiency Virus (HIV): No (last 2019 negative) Hx Hepatitis C: No Hx Depression: Yes Hx Suicide Attempt: No Hx Bipolar Disorder: Yes (noncompliance) Hx Schizophrenia: No - Patient Surgical History Past Surgical History: No Hx Neurologic Surgery: No Hx Cataract Extraction: No Hx Cardiac Surgery: No Hx Lung Surgery: No Hx Breast Surgery: No Hx Breast Biopsy: No Hx Abdominal Surgery: No Hx Appendectomy: No Hx Cholecystectomy: No Hx Genitourinary Surgery: No Hx Section: No Hx Orthopedic Surgery: No Anesthesia Reaction: No - PPD History Previous Implant?: Yes Documented Results: Negative w/proof Implanted On Prior R Admission?: Yes Date: 11/02/19 Results: 0 mm PPD to be Administered?: No - Smoking Cessation Smoking history: Current every day smoker Have you smoked in the past 12 months: Yes Aproximately how many cigarettes per day: 1 Cigars Per Day: 0 Hx Chewing Tobacco Use: No Initiated information on smoking cessation: Yes 'Breaking Loose' booklet given: 03/14/20 - Substances abused Alcohol Substance route: Oral Frequency: Daily Amount used: 1 pint vodka + beers Age of first use: 14 Date of last use: 03/14/20 (2am) Marijuana/Hashish Substance route: Smoking Frequency: Daily ($5) Amount used: $5 Age of first use: 15 Date of last use: 01/14/20 Admission Physical Exam [facility] - Physical General Appearance: Yes: Mild Distress, Tremorous, Irritable, Sweating, Anxious HEENTM: Yes: EOMI, Hearing grossly Normal, Normal ENT Inspection, Normocephalic, Normal Voice, KELLEY, Pharynx Normal, Tm's normal Respiratory: Yes: Chest Non-Tender, Lungs Clear, Normal Breath Sounds, No Respiratory Distress, No Accessory Muscle Use Neck: Yes: No masses,lesions,Nodules, Supple, Trachea in good position Breast: Yes: Within Normal Limits Cardiology: Yes: Regular Rhythm, Regular Rate, S1, S2 Abdominal: Yes: Normal Bowel Sounds, Non Tender, Flat, Soft Genitourinary: Yes: Within Normal Limits Back: Yes: Normal Inspection Musculoskeletal: Yes: full range of Motion, Gait Steady, Pelvis Stable Extremities: Yes: Normal Capillary Refill, Normal Inspection, Normal Range of Motion, Non-Tender 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, Fully Oriented, Alert, Motor Strength 5/5, Normal Mood/Affect, Normal Response Integumentary: Yes: Normal Color, Dry, Warm Lymphatic: Yes: Within Normal Limits - Diagnostic (1) Weight decreased Current Visit: Yes Status: Active (2) depression Current Visit: Yes Status: Active (3) Alcohol dependence with uncomplicated withdrawal Current Visit: Yes Status: Acute (4) Nicotine dependence Current Visit: Yes Status: Acute Qualifiers: Nicotine product type: cigarettes Substance use status: in withdrawal Qualified Code(s): F17.213 - Nicotine dependence, cigarettes, with withdrawal (5) Insomnia Current Visit: Yes Status: Chronic (6) Non-compliance Current Visit: Yes Status: Chronic (7) cannabis dependence Current Visit: Yes Status: Chronic (8) Substance induced mood disorder Current Visit: Yes Status: Suspected Cleared for Admission [facility] - Detox or Rehab [facility] Level of Care: Medically Managed Detox Regimen/Protocol: Librium Claeared for Rehab Admission: No Screened but not Admitted - Documentation of Visit Screened but not Admitted: No Breathalyzer - Breathalyzer Breathalyzer: 0.023 Urine Drug Screen - Test Device Lot number: [id number] Expiration date: 04/21/21 - Control Is test valid?: Yes - Results Drug screen NEGATIVE: No Urine drug screen results: THC-Marijuana Inpatient Rehab Admission - Rehab Decision to Admit Inpatient rehab admission?: No
[2020-03-14 10:35] VITALS: BMI 22.8
[2020-03-14] MEDS ORDERED: MENTHOL/PHENOL 1 EACH UD MM PRN (10:42)
[2020-03-14] MEDS ORDERED: MAG HYDROX/AL HYDROX/SIMETH 30 ML UNIT-DOSE CUP PO PRN (10:42)
[2020-03-14] MEDS ORDERED: chlordiazePOXIDE HCL 25 MG CAPSULE PO PRN (10:42)
[2020-03-14] MEDS ORDERED: IBUPROFEN 400 MG TABLET (FP) PO PRN (10:42)
[2020-03-14] MEDS ORDERED: MAGNESIUM HYDROX 2400MG/30ML ORAL SUSPENSION 30 ML CUP PO PRN (10:42)
[2020-03-14] MEDS ORDERED: BISMUTH SUBSALICYLATE 524 MG/30 ML UD PO PRN (10:42)
[2020-03-14] MEDS ORDERED: ACETAMINOPHEN 325 MG TABLET (FP) PO PRN ×2 (10:42)
[2020-03-14] MEDS ORDERED: NICOTINE POLACRILEX 2 MG GUM BUC PRN (10:42)
[2020-03-14] MEDS ORDERED: MAGNESIUM CITRATE 300 ML BOTTLE PO PRN (10:42)
[2020-03-14] MEDS ORDERED: ONDANSETRON *ODT* 4 MG TABLET SL ONE (11:15)
[2020-03-14] MEDS: NICOTINE 7 MG/24 HOURS TOPICAL PATCH TD SCH (11:33)
[2020-03-14] MEDS: PRENATAL VITAMINS W/ FOLIC ACID TABLET (FP) PO SCH (11:34)
[2020-03-14] MEDS: chlordiazePOXIDE HCL 25 MG CAPSULE PO SCH ×3 (11:34→22:04)
[2020-03-14 14:45] LABS: HEMATOCRIT 46.4 % (35.4-49); HEMOGLOBIN 15.5 GM/dL (11.7-16.9); MCH 30.1 pg (25.7-33.7); MCHC 33.5 g/dl (32.0-35.9); MEAN CELL VOLUME 89.7 fl (80-96); PLATELET COUNT 297 K/MM3 (134-434); RBC 5.17 M/mm3 (4.00-5.60); RDW 13.5 % (11.9-15.9); WHITE BLOOD COUNT 6.7 K/mm3 (4.0-10.0)
[2020-03-14 15:00] LABS: ALBUMIN 3.8 g/dl (3.4-5.0); BLOOD UREA NITROGEN 9.3 mg/dL (7-18); CREATININE 0.7 mg/dL (0.55-1.3); POTASSIUM 4.2 mmol/L (3.5-5.1); TOT PROT 7.4 g/dl (6.4-8.2)
[2020-03-14] MEDS: hydrOXYzine PAMOATE 25 MG CAPSULE (FP) PO SCH ×3 (15:23→22:04)
[2020-03-14] MEDS: THIAMINE HCL 100 MG TABLET (FP) PO SCH (22:04)
[2020-03-14] MEDS: METHOCARBAMOL 500 MG TABLET PO PRN (22:04)
[2020-03-14] MEDS: MELATONIN 5 MG TABLETS PO SCH (22:04)
[2020-03-15] MEDS: chlordiazePOXIDE HCL 25 MG CAPSULE PO SCH ×2 (05:52→10:43)
[2020-03-15] MEDS: hydrOXYzine PAMOATE 25 MG CAPSULE (FP) PO SCH ×5 (05:52→22:09)
--- NOTE | 2020-03-15 10:36 | PN ---
[facility] CIWA - CIWA Score Nausea/Vomitin-No Nausea/No Vomiting Muscle Tremors: 2 Anxiety: 2 Agitation: 2 Paroxysmal Sweats: 2 Orientation: 0-Oriented Tacttile Disturbances: 0-None Auditory Disturbances: 1-Very Mild Visual Disturbances: 2-Mild Sensitivity Headache: 0-None Present CIWA-Ar Total Score: 11 S Progress Note (SOAP) Subjective: Complaints of pain in both legs ( chronic), anxiety, tremors,sweats and light sensitivity. Objective: 03/15/20 10:30 Vital Signs 03/15/20 06:49 Temperature 97.1 F L Pulse Rate 78 Respiratory 18 Rate Blood Pressure 111/76 O2 Sat by Pulse 98 Oximetry (%) Laboratory Last Values WBC 6.7 K/mm3 (4.0-10.0) 03/14/20 10:45 RBC 5.17 M/mm3 (4.00-5.60) 03/14/20 10:45 Hgb 15.5 GM/dL (11.7-16.9) 03/14/20 10:45 Hct 46.4 % (35.4-49) 03/14/20 10:45 MCV 89.7 fl (80-96) 03/14/20 10:45 MCH 30.1 pg (25.7-33.7) 03/14/20 10:45 MCHC 33.5 g/dl (32.0-35.9) 03/14/20 10:45 RDW 13.5 % (11.9-15.9) 03/14/20 10:45 Plt Count 297 K/MM3 (134-434) D 03/14/20 10:45 MPV 8.0 fl (7.5-11.1) 03/14/20 10:45 Sodium 142 mmol/L (136-145) 03/14/20 10:45 Potassium 4.2 mmol/L (3.5-5.1) 03/14/20 10:45 Chloride 105 mmol/L (98-107) 03/14/20 10:45 Carbon Dioxide 29 mmol/L (21-32) 03/14/20 10:45 Anion Gap 8 MMOL/L (8-16) 03/14/20 10:45 BUN 9.3 mg/dL (7-18) 03/14/20 10:45 Creatinine 0.7 mg/dL (0.55-1.3) 03/14/20 10:45 Est GFR (CKD-EPI)AfAm 122.27 03/14/20 10:45 Est GFR (CKD-EPI)NonAf 105.50 03/14/20 10:45 Random Glucose 118 mg/dL (74-106) H 03/14/20 10:45 Calcium 8.0 mg/dL (8.5-10.1) L 03/14/20 10:45 Total Bilirubin 1.0 mg/dL (0.2-1) 03/14/20 10:45 AST 155 U/L (15-37) H 03/14/20 10:45 ALT 109 U/L (13-61) H 03/14/20 10:45 Alkaline Phosphatase 104 U/L (45-117) 03/14/20 10:45 Total Protein 7.4 g/dl (6.4-8.2) 03/14/20 10:45 Albumin 3.8 g/dl (3.4-5.0) 03/14/20 10:45 Syphilis Serology Non-reactive (NONREACTIVE) 03/14/20 10:45 HIV Ag/Ab Combo Qual Negative (NEGATIVE) 03/14/20 11:00 Labs noted with elevated liver enzymes. Assessment: 03/15/20 10:33 Alert and oriented x3, in no acute respiratory distress. Full ROM, ambulatory without assistance. Skin warm to touch , flushed. Withdrawal symptoms. Elevated liver enzymes. Plan: Continue detox protocol. Changed Librium to Ativan protocol due to elevated liver enzymes.
[2020-03-15] MEDS: NICOTINE 7 MG/24 HOURS TOPICAL PATCH TD SCH (10:43)
[2020-03-15] MEDS: PRENATAL VITAMINS W/ FOLIC ACID TABLET (FP) PO SCH (10:43)
[2020-03-15] MEDS ORDERED: LORazepam 1 MG TABLET PO PRN (14:30)
--- NOTE | 2020-03-15 15:17 | CONSULT ---
[facility] Psychiatric Consult - Data Date of interview: 03/15/20 Admission source: [facility] Identifying data: Revisit to [facility] and admission to [address] [place] [address] (temporarily converted into a detoxification service) for this 54 y/o male self- referred for detoxification treatment. ALEKSEY issues : alcohol, nicotine, crack/cocaine, cannabis. Patient is single, no dependents, homeless, unemployed and deprived of any source of income ([employer] benefits revoked for failure to keep recertification appointments). Substance Abuse History: Discussed with the patient. ALEKSEY profile as follows : Smoking history: Current every day smoker. Have you smoked in the past 12 months: Yes. Aproximately how many cigarettes per day: 1. Cigars Per Day: 0. Hx Chewing Tobacco Use: No. Initiated information on smoking cessation: Yes. 'Breaking Loose' booklet given: 03/14/20. - Substances abused. Alcohol. Substance route: Oral. Frequency: Daily. Amount used: 1 pint vodka + beers. Age of first use: 14. Date of last use: 03/14/20 (2am). Marijuana/Hashish. Substance route: Smoking. Frequency: Daily ($5). Amount used: $5. Age of first use: 15. Date of last use: 01/14/20 Medical History: Patient endorses good general health. No known allergies. Psychiatric History: Patient is chronically non-adherent to psychiatric OPD care in spite of a history of multiple psychiatric hospitalizations ([facility], [facility], [facility], [facility], [facility], [facility], [facility]). Reportedly diagnosed with Bipolar Disorder. No affiliation with psychiatric care providers (admits to being on risperdal + citalopram). Mr Pierce is a frequent user of [facility] services at [facility] and elsewhere as well. History of multiple treatment failures. Patient denies history of suicide attempts. Physical/Sexual Abuse/Trauma History: Patient denies. Additional Comment: Urine drug screen results: THC-Marijuana. Noted. Mental Status Exam - Mental Status Exam Alert and Oriented to: Time, Place, Person Cognitive Function: Good Patient Appearance: Well Groomed Mood: Withdrawn Affect: Appropriate, Normal Range Patient Behavior: Fatigued, Appropriate, Cooperative Speech Pattern: Clear, Appropriate Voice Loudness: Normal Thought Process: Intact, Goal Oriented Thought Disorder: Not Present Hallucinations: Denies Suicidal Ideation: Denies Homicidal Ideation: Denies Insight/Judgement: Poor Sleep: Poorly, Difficulty falling asleep Appetite: Good (observed eating lunch) Psychiatric Findings - Problem List ([place] 1, 2,3) (1) Alcohol dependence with uncomplicated withdrawal Current Visit: Yes Status: Acute (2) Nicotine dependence Current Visit: Yes Status: Chronic Qualifiers: Nicotine product type: cigarettes Substance use status: in withdrawal Qualified Code(s): F17.213 - Nicotine dependence, cigarettes, with withdrawal (3) cannabis dependence Current Visit: Yes Status: Chronic (4) Substance induced mood disorder Current Visit: Yes Status: Chronic (5) History of bipolar disorder Current Visit: Yes Status: Chronic (6) Insomnia Current Visit: Yes Status: Chronic (7) Non-compliance Current Visit: Yes Status: Chronic - Initial Treatment Plan Initial Treatment Plan: Psychoeducation. Sleep hygiene. Detoxification. Ward Assistant contacted pharmacist at [facility] ([phone]) for verification of medications : last refills were picked up on August 2019 for remeron 15 mg/hs + gabapentin 100 mg/tid + citalopram 20 mg/day; no risperdal on file. Will resume, at patient's request : remeron 15 mg po hs + citalopram 10 mg po daily + risperdal 0.5 mg po bid + gabapentin 100 mg po tid. Side effects/benefits of these drugs are discussed with the patient (this includes risk of dystonias, dyskinesias, akathisia, sexual impotence, gynecomastia, galactorrhea, cardiovascular adverse events, suicidal ideation). Patient agrees to this plan of care. Informed consent granted to (verbal). Observation.
[2020-03-15] MEDS: LORazepam 2 MG TABLET PO SCH ×2 (17:35→22:08)
[2020-03-15] MEDS: GABAPENTIN 100 MG CAPSULE PO SCH (22:08)
[2020-03-15] MEDS: MELATONIN 5 MG TABLETS PO SCH (22:08)
[2020-03-15] MEDS: MIRTAZAPINE 15 MG TABLET (FP) PO SCH (22:08)
[2020-03-15] MEDS: THIAMINE HCL 100 MG TABLET (FP) PO SCH (22:09)
[2020-03-15] MEDS: METHOCARBAMOL 500 MG TABLET PO PRN (22:10)
[2020-03-15] MEDS: risperiDONE 0.5 MG TABLET PO SCH (22:10)
[2020-03-16] MEDS ORDERED: chlordiazePOXIDE HCL 25 MG CAPSULE PO SCH (05:00)
[2020-03-16] MEDS: GABAPENTIN 100 MG CAPSULE PO SCH ×3 (06:33→22:00)
[2020-03-16] MEDS: LORazepam 2 MG TABLET PO SCH ×5 (06:33→22:00)
[2020-03-16] MEDS: hydrOXYzine PAMOATE 25 MG CAPSULE (FP) PO SCH ×2 (07:06→11:05)
--- NOTE | 2020-03-16 10:51 | PN ---
[facility] CIWA - CIWA Score Nausea/Vomitin-No Nausea/No Vomiting Muscle Tremors: 2 Anxiety: 2 Agitation: 1-Slight > Activity Paroxysmal Sweats: 1-Minimal Palms Moist Orientation: 2-Disoriented Date<2 days (date of week day of month) Tacttile Disturbances: 0-None Auditory Disturbances: 0-None Visual Disturbances: 2-Mild Sensitivity Headache: 0-None Present CIWA-Ar Total Score: 10 S Progress Note (SOAP) Subjective: 54 years old male admitted on 03/14/20 for alcohol withdrawal sx management treating with ativan detox regiment ast elevation discontinue tylenal mbi 22.8 ensure 120 ml po tid with meals mr morales seems sleepy "I took some medications last night" responses to verbal command discontinue vistaril reports dry eyes artificial eye drops Objective: 03/16/20 10:51 Vital Signs - 24 hr 03/15/20 03/15/20 03/15/20 13:30 16:51 20:01 Temperature 97 F L 98.0 F 97.1 F L Pulse Rate 92 H 84 90 Respiratory 18 18 16 Rate Blood Pressure 138/78 109/60 129/75 O2 Sat by Pulse 98 96 Oximetry (%) 03/16/20 03/16/20 03/16/20 06:00 06:27 10:03 Temperature 97.5 F L 98.4 F Pulse Rate 69 81 Respiratory 18 20 Rate Blood Pressure 108/68 117/77 O2 Sat by Pulse 97 Oximetry (%) Laboratory Tests 03/14/20 03/14/20 03/14/20 10:45 10:45 10:45 WBC 6.7 RBC 5.17 Hgb 15.5 Hct 46.4 MCV 89.7 MCH 30.1 MCHC 33.5 RDW 13.5 Plt Count 297 D MPV 8.0 Sodium 142 Potassium 4.2 Chloride 105 Carbon Dioxide 29 Anion Gap 8 BUN 9.3 Creatinine 0.7 Est GFR (CKD-EPI)AfAm 122.27 Est GFR (CKD-EPI)NonAf 105.50 Random Glucose 118 H Calcium 8.0 L Total Bilirubin 1.0 AST 155 H ALT 109 H Alkaline Phosphatase 104 Total Protein 7.4 Albumin 3.8 Syphilis Serology Non-reactive COVID-19 (RUI) HIV Ag/Ab Combo Qual 03/14/20 03/14/20 11:00 11:00 WBC RBC Hgb Hct MCV MCH MCHC RDW Plt Count MPV Sodium Potassium Chloride Carbon Dioxide Anion Gap BUN Creatinine Est GFR (CKD-EPI)AfAm Est GFR (CKD-EPI)NonAf Random Glucose Calcium Total Bilirubin AST ALT Alkaline Phosphatase Total Protein Albumin Syphilis Serology COVID-19 (RUI) Not detected HIV Ag/Ab Combo Qual Negative ast elevation continue ativan regiment for alcohol detox ammonia serum level pending Assessment: 03/16/20 10:52 alcohol withdrawal ast serum level elevation 03/16/20 10:55 rule out hepatitis c Plan: ativan regiment
[2020-03-16] MEDS: risperiDONE 0.5 MG TABLET PO SCH ×2 (11:04→22:00)
[2020-03-16] MEDS: PRENATAL VITAMINS W/ FOLIC ACID TABLET (FP) PO SCH (11:08)
[2020-03-16] MEDS: NICOTINE 7 MG/24 HOURS TOPICAL PATCH TD SCH (11:09)
[2020-03-16] MEDS: CITALOPRAM HYDROBROMIDE 10 MG TABLET PO SCH (11:09)
[2020-03-16] MEDS: ARTIFICIAL TEARS (POLYVINYL ALCOHOL) OPTH DROPS OU SCH ×3 (14:34→22:01)
[2020-03-16] MEDS: THIAMINE HCL 100 MG TABLET (FP) PO SCH (22:00)
[2020-03-16] MEDS: MIRTAZAPINE 15 MG TABLET (FP) PO SCH (22:00)
[2020-03-17] MEDS ORDERED: chlordiazePOXIDE HCL 10 MG CAPSULE PO PRN
[2020-03-17] MEDS ORDERED: chlordiazePOXIDE HCL 10 MG CAPSULE PO SCH (05:00)
[2020-03-17] MEDS: GABAPENTIN 100 MG CAPSULE PO SCH (05:43)
[2020-03-17] MEDS: LORazepam 1 MG TABLET PO SCH ×2 (05:43→10:33)
[2020-03-17] MEDS: ARTIFICIAL TEARS (POLYVINYL ALCOHOL) OPTH DROPS OU SCH (09:19)
--- NOTE | 2020-03-17 10:19 | PN ---
[facility] CIWA - CIWA Score Nausea/Vomitin-No Nausea/No Vomiting Muscle Tremors: 2 Anxiety: 4-Mod. Anxious/Guarded Agitation: 2 Paroxysmal Sweats: No Perspiration Orientation: 1-Uncertain about Date Tacttile Disturbances: 0-None Auditory Disturbances: 0-None Visual Disturbances: 0-None Headache: 0-None Present CIWA-Ar Total Score: 9 BHS Progress Note (SOAP) Subjective: Pt requesting to leave today because have to go back to [place] to his family. Reports he is homeless in [place]. Pt was spoken to by this hand sign writer and his counselor Ms Vernon Bob encouraging him to stay in treatment. Pt had pending lab result today and was explained to stay for final evaluation but all efforts to encourage patient was unsuccessful. Pt says "I'm fine, I don't care what you people say. I'm leaving today anyway". Objective: 03/17/20 10:18 Vital Signs - 24 hr 03/16/20 03/16/20 03/16/20 13:20 16:59 20:28 Temperature 98.4 F 98.2 F 98.7 F Pulse Rate 101 H 106 H 92 H Respiratory 20 18 18 Rate Blood Pressure 116/84 116/79 123/82 O2 Sat by Pulse 98 96 Oximetry (%) 03/17/20 05:39 Temperature 98.4 F Pulse Rate 82 Respiratory 18 Rate Blood Pressure 130/86 O2 Sat by Pulse 95 Oximetry (%) Laboratory Tests 03/14/20 03/14/20 03/14/20 10:45 10:45 10:45 WBC 6.7 RBC 5.17 Hgb 15.5 Hct 46.4 MCV 89.7 MCH 30.1 MCHC 33.5 RDW 13.5 Plt Count 297 D MPV 8.0 Sodium 142 Potassium 4.2 Chloride 105 Carbon Dioxide 29 Anion Gap 8 BUN 9.3 Creatinine 0.7 Est GFR (CKD-EPI)AfAm 122.27 Est GFR (CKD-EPI)NonAf 105.50 Random Glucose 118 H Calcium 8.0 L Total Bilirubin 1.0 AST 155 H ALT 109 H Alkaline Phosphatase 104 Total Protein 7.4 Albumin 3.8 Syphilis Serology Non-reactive COVID-19 (RUI) HIV Ag/Ab Combo Qual 03/14/20 03/14/20 11:00 11:00 WBC RBC Hgb Hct MCV MCH MCHC RDW Plt Count MPV Sodium Potassium Chloride Carbon Dioxide Anion Gap BUN Creatinine Est GFR (CKD-EPI)AfAm Est GFR (CKD-EPI)NonAf Random Glucose Calcium Total Bilirubin AST ALT Alkaline Phosphatase Total Protein Albumin Syphilis Serology COVID-19 (RUI) Not detected HIV Ag/Ab Combo Qual Negative labs noted Ammonia level pending(lab was ordered yesterday because pt was drowsy per weekend report and drawn this morning. See weekend staff notes). Alert o x 2( Pt not sure about date); anxious to leave treatment. no acute distress oob ambulating with steady gait Assessment: 03/17/20 10:20 mild w/s Plan: Pt prefers to sign out AMA Pt met with counselor and has been referred to [facility] for CD aftercare.
--- NOTE | 2020-03-17 10:26 | DS ---
[facility] Detox Discharge Summary Admission Date: 03/14/20 Discharge Date: 03/17/20 - History Present History: Alcohol Dependence, Cannabis Dependence Additional Comments: pt declined to continue with treatment recommendations. Pt was spoken to by this securities underwriter and his counselor, Ms Vernon Bob but effort was unsuccessful. Alert oriented x 2. iIn no acute distress. Ambulating with steady gait. Denies s/h/i. CD aftercare referral recommendation given to patient by his counselor. Pt reports homeless in the [place] and has family in [place]. Pt reports he has no PCP. Pt was instructed to seek care at any nearest Hospital for emergency care if needed. Pertinent Past History: Bipolar Disorder - Physical Exam Results Vital Signs: Vital Signs Temperature 98.4 F 03/17/20 05:39 Pulse Rate 82 03/17/20 05:39 Respiratory Rate 18 03/17/20 05:39 Blood Pressure 130/86 03/17/20 05:39 O2 Sat by Pulse Oximetry (%) 95 03/17/20 05:39 Pertinent Admission Physical Exam Findings: Withdrawal sx Laboratory Tests 03/14/20 03/14/20 03/14/20 10:45 10:45 10:45 WBC 6.7 RBC 5.17 Hgb 15.5 Hct 46.4 MCV 89.7 MCH 30.1 MCHC 33.5 RDW 13.5 Plt Count 297 D MPV 8.0 Sodium 142 Potassium 4.2 Chloride 105 Carbon Dioxide 29 Anion Gap 8 BUN 9.3 Creatinine 0.7 Est GFR (CKD-EPI)AfAm 122.27 Est GFR (CKD-EPI)NonAf 105.50 Random Glucose 118 H Calcium 8.0 L Total Bilirubin 1.0 AST 155 H ALT 109 H Alkaline Phosphatase 104 Total Protein 7.4 Albumin 3.8 Syphilis Serology Non-reactive COVID-19 (RUI) HIV Ag/Ab Combo Qual 03/14/20 03/14/20 11:00 11:00 WBC RBC Hgb Hct MCV MCH MCHC RDW Plt Count MPV Sodium Potassium Chloride Carbon Dioxide Anion Gap BUN Creatinine Est GFR (CKD-EPI)AfAm Est GFR (CKD-EPI)NonAf Random Glucose Calcium Total Bilirubin AST ALT Alkaline Phosphatase Total Protein Albumin Syphilis Serology COVID-19 (RUI) Not detected HIV Ag/Ab Combo Qual Negative - Treatment Hospital Course: Detoxed Safely, Responded well, Discharged Condition Good, Rehab Referral Accepted Patient has Accepted a Rehab Referral to: [facility] - Medication Discharge Medications: Ambulatory Orders Acamprosate Calcium [Campral -] 666 mg PO TID 08/30/19 Folic Acid 1 mg PO DAILY 08/30/19 Ibuprofen 400 mg PO PRN PRN 08/30/19 Multivitamins [Multivit ([facility] Formulary)] 1 tab PO DAILY 08/30/19 Citalopram Hydrobromide [Celexa -] 10 mg PO DAILY #30 tablet 03/17/20 Gabapentin [Neurontin -] 100 mg PO TID #90 capsule 03/17/20 Mirtazapine [Remeron -] 15 mg PO HS #30 tablet 03/17/20 Risperidone [Risperdal -] 0.5 mg PO BID #60 tablet 03/17/20 - Diagnosis (1) Alcohol dependence with uncomplicated withdrawal Current Visit: Yes Status: Acute (2) Nicotine dependence Current Visit: Yes Status: Acute Qualifiers: Nicotine product type: cigarettes Substance use status: in withdrawal Qualified Code(s): F17.213 - Nicotine dependence, cigarettes, with withdrawal (3) Non-compliance Current Visit: Yes Status: Chronic - AMA Did Patient Leave Against Medical Advice: Yes
[2020-03-17] MEDS: CITALOPRAM HYDROBROMIDE 10 MG TABLET PO SCH (10:31)
[2020-03-17] MEDS: risperiDONE 0.5 MG TABLET PO SCH (10:31)
[2020-03-17] MEDS: PRENATAL VITAMINS W/ FOLIC ACID TABLET (FP) PO SCH (10:31)
[2020-03-17] MEDS: NICOTINE 7 MG/24 HOURS TOPICAL PATCH TD SCH (10:31)
--- NOTE | 2020-03-17 11:00 | PN ---
[facility] Progress Note Note: Patient is scheduled for discharge today. Script for 30 days supply of medications(Remeron 15 mg/hs, Gabapentin 100 mg/tid, Risperdal 0.5 mg/bid, Celexa 10 mg/day ) are electronically transmitted to [facility], [address], [place] [address]
[2020-03-17 11:07] VITALS: BP 121/90; PULSE 117; TEMP 97.5
[2020-03-18] MEDS ORDERED: LORazepam 0.5 MG TABLET PO PRN
[2020-03-18] MEDS ORDERED: chlordiazePOXIDE HCL 10 MG CAPSULE PO SCH (05:00)
[2020-03-18] MEDS ORDERED: LORazepam 0.5 MG TABLET PO SCH (05:00)
[2020-03-19] MEDS ORDERED: LORazepam 0.5 MG TABLET PO ONE (05:00)
[2020-03-19] MEDS ORDERED: chlordiazePOXIDE HCL 10 MG CAPSULE PO ONE (05:00)
== END 2020-03-17 11:15 | disposition left against medical advice (07) | DRG 770 ==
LOC: YASAS 09:09 → Y5N DETOX 10:56
PROVIDERS: ADMIT Allergy & Immunology; ATTEND Allergy & Immunology
PROC: HZ2ZZZZ Detoxification Services for Substance Abuse Treatment (ICD-10-PCS; principal; 2020-03-14)
DX: F10.230 Alcohol dependence with withdrawal, uncomplicated (principal); F12.20 Cannabis dependence, uncomplicated; F17.210 Nicotine dependence, cigarettes, uncomplicated; F31.9 Bipolar disorder, unspecified; F19.24 Other psychoactive substance dependence with psychoactive substance-induced mood disorder; H04.123 Dry eye syndrome of bilateral lacrimal glands; R74.0 Nonspecific elevation of levels of transaminase and lactic acid dehydrogenase [LDH]; R63.4 Abnormal weight loss; Z68.22 Body mass index [BMI] 22.0-22.9, adult; Z91.14 Patient's other noncompliance with medication regimen; Z56.0 Unemployment, unspecified; Z59.0 Homelessness
CPT/HCPCS: 36415; 80053; 82140; 85027; 86780; 86803; 87389; Q0162; U0003

== ENCOUNTER 2020-04-24 11:40 | Inpatient (IN) | payer OTHER ==
--- NOTE | 2020-04-24 11:53 | BHS.RME ---
Substance Use & Tx History - Substance Use History Alcohol Substance amount: 1 pint vodka + beers Frequency of use: Daily Substance route: Oral Date of Last Use: 04/23/20 Marijuana/Hashish Substance amount: 1-2 drags Frequency of use: Daily Substance route: Smoking Date of Last Use: 04/22/20 Nicotine Substance amount: 2-3 drags 1 cigg Frequency of use: Daily Substance route: Smoking Date of Last Use: 04/23/20 - Last Treatment Date of last treatment: 03/14-03/17/20 left early Treatment type: Substance Use Disorder (ALEKSEY) Where was last treatment: Detox Physical/Psych/Mental Status - Behavior General Behavior: Increased activity (restlessness, agitation) Eye Contact: Normal - Cooperativeness Cooperativeness: Cooperative - Thinking Thought Processes: Tight, Logical, Goal Directed - Physical Health Problems Is patient presently having any pain?: No Does patient presently have any injuries (include location): No Does patient currently have a fever: No Is patient : No CIWA Nausea/Vomitin-No Nausea/No Vomiting Muscle Tremors: 3 Anxiety: 4-Mod. Anxious/Guarded Agitation: 4-Moderately Restless Paroxysmal Sweats: 1-Minimal Palms Moist Orientation: 0-Oriented Tacttile Disturbances: 0-None Auditory Disturbances: 0-None Visual Disturbances: 0-None Headache: 0-None Present CIWA-Ar Total Score: 12
--- NOTE | 2020-04-24 12:22 | BHS.RME ---
Substance Use & Tx History - Substance Use History Alcohol Substance amount: 1 pint vodka + beers Frequency of use: Daily Substance route: Oral Date of Last Use: 04/23/20
--- NOTE | 2020-04-24 12:59 | HP ---
CIWA Score Nausea/Vomitin-No Nausea/No Vomiting Muscle Tremors: 3 Anxiety: 4-Mod. Anxious/Guarded Agitation: 4-Moderately Restless Paroxysmal Sweats: 1-Minimal Palms Moist Orientation: 0-Oriented Tacttile Disturbances: 0-None Auditory Disturbances: 0-None Visual Disturbances: 0-None Headache: 0-None Present CIWA-Ar Total Score: 12 - Admission Criteria [facility]ASAS Guidelines: Admission for Medically Managed Detox: Requires at least one of the followin. CIWA greater than 12 2. Seizures within the past 24 hours 3. Delirium tremens within the past 24 hours 4. Hallucinations within the past 24 hours 5. Acute intervention needed for co occurring medical disorder 6. Acute intervention needed for co occurring psychiatric disorder 7. Severe withdrawal that cannot be handled at a lower level of care (continued vomiting, continued diarrhea, abnormal vital signs) requiring intravenous medication and/or fluids 8. Admitting History and Physical - Past Medical History Psych: Yes: Depression - Past Surgical History Past Surgical History: Yes: None - Smoking History Smoking history: Current every day smoker Have you smoked in the past 12 months: Yes Aproximately how many cigarettes per day: 1 - Alcohol/Substance Use Hx Alcohol Use: Yes History of Substance Use: reports: Cocaine, Marijuana Date of Last Use: 10/30/19 - Social History ADL: Support Services Occupation: unemployed History of Recent Travel: No Admission [facility] Chief Complaint: detox from alcohol Allergies/Adverse Reactions: Allergies Allergy/AdvReac Type Severity Reaction Status Date / Time No Known Allergies Allergy Verified 04/24/20 13:20 History of Present Illness: Patient is a 54 y/o male with history of depression who is her for detox from alcohol. Patient started drinking at age 14, drinks 1 pint of vodka a day. Patient drinks depending on the day. Typically it is 1 pint and a couple of beers. Denies every having seizures from past drinking. Patient is positive for needing an eyeopener. Patient thinks he has blacked out in the past. Patient was recently here for detox from 03/14-03/17 Patient started smoking marijuana at age 15 and smokes 5 dollars worth a day. Patients started smoking at age 15, has been trying to quit only smoke 1-2 cigareetes a day. - Substance Use History Alcohol Substance amount: 1 pint vodka + beers Frequency of use: Daily Substance route: Oral Date of Last Use: 04/23/20 Marijuana/Hashish Substance amount: 1-2 drags Frequency of use: Daily Substance route: Smoking Date of Last Use: 04/22/20 Nicotine Substance amount: 2-3 drags 1 cigg Frequency of use: Daily Substance route: Smoking Date of Last Use: 04/23/20 PNHX: depression for more then 8 years, used to take celexa and respiridone Denies ever trying to commit suicide, does not have any current thoughts of suicide. Has not been taking any medications for depression. Patient is homeless and denies having a job. Patient meets inpatient criteria for admission for detox from [facility] - Review of Systems Constitutional: Other (denies fever. chills dizziness) EENT: denies: Tearing, Tinnitus Respiratory: denies: Cough, Shortness of Breath Cardiac: denies: Chest Pain GI: denies: Constipated, Diarrhea, Nausea, Vomiting Musculoskeletal: denies: Muscle Pain Neuro: denies: Headache, Tremors, Dizziness Patient History - Patient Medical History Hx Anemia: No Hx Asthma: No Hx Chronic Obstructive Pulmonary Disease (COPD): No Hx Cancer: No Hx Cardiac Disorders: No Hx Congestive Heart Failure: No Hx Hypertension: No Hx Hypercholesterolemia: No Hx Pacemaker: No HX Cerebrovascular Accident: No Hx Seizures: No Hx Dementia: No Hx Diabetes: No Hx Gastrointestinal Disorders: No Hx Liver Disease: No Hx Genitourinary Disorders: No Hx Sexually Transmitted Disorders: No Hx Renal Disease (ESRD): No Hx Thyroid Disease: No Hx Human Immunodeficiency Virus (HIV): No (last 2019 negative) Hx Hepatitis C: No Hx Depression: Yes Hx Suicide Attempt: No Hx Bipolar Disorder: Yes (noncompliance) Hx Schizophrenia: No - Patient Surgical History Past Surgical History: No Hx Neurologic Surgery: No Hx Cataract Extraction: No Hx Cardiac Surgery: No Hx Lung Surgery: No Hx Breast Surgery: No Hx Breast Biopsy: No Hx Abdominal Surgery: No Hx Appendectomy: No Hx Cholecystectomy: No Hx Genitourinary Surgery: No Hx Section: No Hx Orthopedic Surgery: No Anesthesia Reaction: No - PPD History Date: 11/02/19 Results: 0 mm - Smoking Cessation Smoking history: Current every day smoker Have you smoked in the past 12 months: Yes Aproximately how many cigarettes per day: 1 Cigars Per Day: 0 Hx Chewing Tobacco Use: No Initiated information on smoking cessation: No - Substance & Tx. History Hx Alcohol Use: Yes (1 pint a day) - Substances abused Alcohol Substance route: Oral Frequency: Daily Amount used: 1 PINT VODKA/BEERS Age of first use: 14 Date of last use: 04/23/20 Marijuana/Hashish Substance route: Smoking Frequency: Daily Amount used: $5 Age of first use: 15 Date of last use: 04/22/20 Admission Physical Exam S - Physical General Appearance: Yes: Within Normal Limits Cleared for Admission [facility] - Detox or Rehab [facility] Level of Care: Medically Managed Detox Regimen/Protocol: Librium Breathalyzer - Breathalyzer Breathalyzer: 0 Vital Signs - Vital Signs Vital signs refused: Yes Temperature: 97.8 F Temperature source: Oral Pulse Rate: 63 Respiratory Rate: 12 Blood Pressure: 160/92 BP Location: Left Arm - Height Height: 5 ft 8 in - Weight Weight: 150 kg - BMI Body Mass Index (BMI): 50.3 Urine Drug Screen - Test Device Lot number: [id number] Expiration date: 11/27/21 - Control Is test valid?: Yes - Results Drug screen NEGATIVE: No Urine drug screen results: THC-Marijuana, BZO-Benzodiazepines Inpatient Rehab Admission - Rehab Decision to Admit Inpatient rehab admission?: No
[2020-04-24] MEDS ORDERED: IBUPROFEN 400 MG TABLET (FP) PO PRN (13:07)
[2020-04-24] MEDS ORDERED: ONDANSETRON *ODT* 4 MG TABLET SL PRN (13:07)
[2020-04-24] MEDS ORDERED: MAG HYDROX/AL HYDROX/SIMETH 30 ML UNIT-DOSE CUP PO PRN (13:07)
[2020-04-24] MEDS ORDERED: MAGNESIUM HYDROX 2400MG/30ML ORAL SUSPENSION 30 ML CUP PO PRN (13:07)
[2020-04-24] MEDS ORDERED: MENTHOL/PHENOL 1 EACH UD MM PRN (13:07)
[2020-04-24] MEDS ORDERED: ACETAMINOPHEN 325 MG TABLET (FP) PO PRN ×2 (13:07)
[2020-04-24] MEDS ORDERED: BISMUTH SUBSALICYLATE 524 MG/30 ML UD PO PRN (13:07)
[2020-04-24] MEDS ORDERED: MAGNESIUM CITRATE 300 ML BOTTLE PO PRN (13:07)
[2020-04-24] MEDS ORDERED: METHOCARBAMOL 500 MG TABLET PO PRN (13:07)
[2020-04-24] MEDS ORDERED: NICOTINE POLACRILEX 2 MG GUM BUC PRN (13:07)
[2020-04-24] MEDS: NICOTINE 7 MG/24 HOURS TOPICAL PATCH TD SCH (14:24)
[2020-04-24] MEDS: LORazepam 1 MG TABLET PO PRN (14:25)
[2020-04-24] MEDS: hydrOXYzine PAMOATE 25 MG CAPSULE (FP) PO SCH ×3 (14:25→22:40)
[2020-04-24] MEDS ORDERED: cloNIDine HCL 0.1 MG TABLET PO ONE (15:00)
--- NOTE | 2020-04-24 15:08 | PN ---
Teaching Attending Note Name of Resident: Natasha Giles ATTENDING PHYSICIAN STATEMENT I saw and evaluated the patient. I reviewed the resident's note and discussed the case with the resident. I agree with the resident's findings and plan as documented. SUBJECTIVE: OBJECTIVE: ASSESSMENT AND PLAN: Patient is a 54 y/o male with history of depression who is her for detox from alcohol. Patient started drinking at age 14, drinks 1 pint of vodka a day. Patient drinks depending on the day. Typically it is 1 pint and a couple of beers. Denies every having seizures from past drinking. Patient is positive for needing an eyeopener. Patient thinks he has blacked out in the past. UDS: THC, BZO Imp 1. Alcohol use disorder Plan 1. Ativan protocol
[2020-04-24 15:57] VITALS: BMI 50.3
--- NOTE | 2020-04-24 16:14 | CONSULT ---
[facility] Psychiatric Consult - Data Date of interview: 04/24/20 Admission source: [facility] Identifying data: Patient is a 54 year old single [place] male, without children, unemployed, homeless, and is not supported with financial assistance. This is one of multiple admissions for patient. Patient admitted to for alcohol + marijuana dependence. Substance Abuse History: Substance Use History. Alcohol. Substance amount: 1 pint vodka + beers. Frequency of use: Daily. Substance route: Oral. Date of Last Use: 04/23/20. Marijuana/Hashish. Substance amount: 1-2 drags. Frequency of use: Daily. Substance route: Smoking. Date of Last Use: 04/22/20. Nicotine. Substance amount: 2-3 drags 1 cigg. Frequency of use: Daily. Substance route: Smoking. Date of Last Use: 04/23/20. - Last Treatment. Date of last treatment: 03/14-03/17/20 left early. Treatment type: Substance Use Disorder (ALEKSEY). Where was last treatment: Detox Medical History: denies. Psychiatric History: Patient with a history of multiple psychiatric hospitalizations including but not limited to [facility], [facility], [facility], [facility], [facility], [facility], and [facility]. Mr. Pierce reports a diagnosis of Bipolar disorder. Patient with a chronic history of nonadherence to outpatient psychiatric treatment. States that he last accepted psychotropic medications while in detox several months ago. Patient seen by Dr. Ferguson and was prescribed remeron 15 mg po hs + citalopram 10 mg po daily + risperdal 0.5 mg po bid + gabapentin 100 mg po tid after patient's pharmacy was contacted. Patient is requesting to resume the same medications he was prescribed in February 2020. No reported history of suicide attempt. Physical/Sexual Abuse/Trauma History: denies. Mental Status Exam - Mental Status Exam Alert and Oriented to: Time, Place, Person Cognitive Function: Good Patient Appearance: Well Groomed Mood: Withdrawn Affect: Mood Congruent Patient Behavior: Fatigued Speech Pattern: Appropriate Voice Loudness: Mildly Soft/Quiet Thought Process: Goal Oriented Thought Disorder: Not Present Hallucinations: Denies Suicidal Ideation: Denies Homicidal Ideation: Denies Insight/Judgement: Poor Sleep: Fair Appetite: Fair Muscle strength/Tone: Normal Gait/Station: Other (Gait not observed.) Psychiatric Findings - Problem List ([place] 1, 2,3) (1) Alcohol dependence with uncomplicated withdrawal Status: Acute (2) Alcohol dependence Status: Chronic (3) History of bipolar disorder Status: Chronic (4) Substance induced mood disorder Status: Suspected (5) cannabis dependence Status: Chronic - Initial Treatment Plan Initial Treatment Plan: Psychoeducation provided. Detoxification in progress. Will order Celexa 10mg daily + Gabapentin 100mg TID + Risperdal 0.5mg BID + Remeron 15mg HS. Benefits and side effects discussed. Verbal consent given.
[2020-04-24 17:06] LABS: HEMATOCRIT 46.1 % (35.4-49); HEMOGLOBIN 15.7 GM/dL (11.7-16.9); MCH 30.7 pg (25.7-33.7); MEAN CELL VOLUME 90.5 fl (80-96); PLATELET COUNT 322 K/MM3 (134-434); RDW 13.8 % (11.9-15.9)
[2020-04-24 17:31] LABS: ALBUMIN 3.8 g/dl (3.4-5.0); BILIRUBIN,TOTAL 0.9 mg/dL (0.2-1); BLOOD UREA NITROGEN 15.2 mg/dL (7-18); CALCIUM 9.5 mg/dL (8.5-10.1); CREATININE 0.9 mg/dL (0.55-1.3); POTASSIUM 4.2 mmol/L (3.5-5.1); TOT PROT 7.6 g/dl (6.4-8.2)
[2020-04-24] MEDS: LORazepam 2 MG TABLET PO SCH ×2 (18:55→22:40)
[2020-04-24] MEDS: risperiDONE 1 MG TABLET PO SCH (22:40)
[2020-04-24] MEDS: GABAPENTIN 100 MG CAPSULE PO SCH (22:40)
[2020-04-24] MEDS: THIAMINE HCL 100 MG TABLET (FP) PO SCH (22:40)
[2020-04-24] MEDS: MELATONIN 5 MG TABLETS PO SCH (22:40)
[2020-04-24] MEDS: MIRTAZAPINE 15 MG TABLET (FP) PO SCH (22:40)
[2020-04-25] MEDS: GABAPENTIN 100 MG CAPSULE PO SCH ×3 (07:16→22:52)
[2020-04-25] MEDS: hydrOXYzine PAMOATE 25 MG CAPSULE (FP) PO SCH ×5 (07:16→22:52)
[2020-04-25] MEDS: LORazepam 2 MG TABLET PO SCH ×4 (07:16→22:52)
--- NOTE | 2020-04-25 09:17 | PN ---
[facility] CIWA - CIWA Score Nausea/Vomitin-Mild Nausea/No Vomiting Muscle Tremors: None Anxiety: 1-Mildly Anxious Agitation: 1-Slight > Activity Paroxysmal Sweats: No Perspiration Orientation: 0-Oriented Tacttile Disturbances: 0-None Auditory Disturbances: 0-None Visual Disturbances: 0-None Headache: 0-None Present CIWA-Ar Total Score: 3 BHS Progress Note (SOAP) Subjective: Complaints of GI upset, however eating breakfast Objective: 04/25/20 09:15 Laboratory Tests 04/24/20 04/24/20 04/24/20 13:00 13:00 13:00 WBC 8.0 RBC 5.10 Hgb 15.7 Hct 46.1 MCV 90.5 MCH 30.7 MCHC 34.0 RDW 13.8 Plt Count 322 MPV 8.0 Sodium 139 Potassium 4.2 Chloride 104 Carbon Dioxide 29 Anion Gap 7 L BUN 15.2 Creatinine 0.9 Est GFR (CKD-EPI)AfAm 110.27 Est GFR (CKD-EPI)NonAf 95.14 Random Glucose 161 H Calcium 9.5 Total Bilirubin 0.9 AST 122 H ALT 109 H Alkaline Phosphatase 129 H Total Protein 7.6 Albumin 3.8 Syphilis Serology Non-reactive COVID-19 (RUI) 04/24/20 14:30 WBC RBC Hgb Hct MCV MCH MCHC RDW Plt Count MPV Sodium Potassium Chloride Carbon Dioxide Anion Gap BUN Creatinine Est GFR (CKD-EPI)AfAm Est GFR (CKD-EPI)NonAf Random Glucose Calcium Total Bilirubin AST ALT Alkaline Phosphatase Total Protein Albumin Syphilis Serology COVID-19 (RUI) Not detected Home Medication List Medication Instructions Recorded Confirmed Type Folic Acid 1 mg PO DAILY 08/30/19 04/24/20 History Multivitamins [Multivit ([facility] 1 tab PO DAILY 08/30/19 04/24/20 History Formulary)] Active Medications Generic Name Dose Route Start Last Admin Trade Name Freq PRN Reason Stop Dose Admin Acetaminophen 650 mg 04/24/20 13:07 Tylenol - PO Q6H PRN PAIN LEVEL 4 - 6 Acetaminophen 650 mg 04/24/20 13:07 Tylenol - PO Q6H PRN FEVER Al Hydroxide/Mg Hydroxide 30 ml 04/24/20 13:07 Mylanta Oral Suspension - PO Q6H PRN DYSPEPSIA Bismuth Subsalicylate 524 mg 04/24/20 13:07 Pepto-Bismol - PO Q1H PRN DIARRHEA Citalopram Hydrobromide 10 mg 04/25/20 10:00 Celexa - PO DAILY JANET Eucalyptus/Menthol/Phenol/Sorbitol 1 each 04/24/20 13:07 Cepastat Lozenge - MM 04/30/20 13:08 Q4H PRN SORE THROAT Gabapentin 100 mg 04/24/20 22:00 04/25/20 07:16 Neurontin - PO 100 mg TID JANET Administration Hydroxyzine Pamoate 25 mg 04/24/20 14:00 04/25/20 07:16 Vistaril - PO 04/30/20 13:08 25 mg Q4HWA JANET Administration Ibuprofen 400 mg 04/24/20 13:07 Motrin - PO Q6H PRN PAIN LEVEL 1 - 3 Lorazepam 1 mg 04/26/20 05:00 Ativan - PO 04/26/20 23:01 0500,1100,1700,2300 JANET Lorazepam 1 mg 04/24/20 13:07 04/24/20 14:25 Ativan - PO 04/26/20 23:59 1 mg Q4H PRN Administration Symptoms of Withdrawal Lorazepam 2 mg 04/24/20 17:00 04/25/20 07:16 Ativan PO 04/25/20 23:01 2 mg 0500,1100,1700,2300 JANET Administration Lorazepam 0.5 mg 04/27/20 05:00 Ativan - PO 04/27/20 23:01 Q6H JANET Lorazepam 0.5 mg 04/27/20 00:00 Ativan - PO 04/28/20 00:00 Q4H PRN Symptoms of Withdrawal Lorazepam 0.5 mg 04/28/20 05:00 Ativan - PO 04/28/20 05:01 ONCE ONE Magnesium Citrate 300 ml 04/24/20 13:07 Citroma - PO Q48H PRN CONSTIPATION Magnesium Hydroxide 30 ml 04/24/20 13:07 Milk Of Magnesia - PO PRN PRN CONSTIPATION Melatonin 5 mg 04/24/20 22:00 04/24/20 22:40 Melatonin PO 5 mg HS JANET Administration Methocarbamol 500 mg 04/24/20 13:07 Robaxin - PO 04/30/20 13:08 Q6H PRN MUSCLE SPASMS Mirtazapine 15 mg 04/24/20 22:00 04/24/20 22:40 Remeron - PO 15 mg HS JANET Administration Nicotine 7 mg 04/24/20 14:00 04/24/20 14:24 Nicoderm Patch - TD 7 mg DAILY JANET Administration Nicotine Polacrilex 2 mg 04/24/20 13:07 Nicorette Gum - BUC Q2H PRN NICOTINE REPLACEMENT RX Ondansetron HCl 4 mg 04/24/20 13:07 Zofran Odt - SL 04/30/20 13:10 Q8H PRN Nausea/Vomiting Multivit/Folic Acid/Iron 1 tab 04/25/20 10:00 Vitamins ([facility]) - PO DAILY JANET Risperidone 0.5 mg 04/24/20 22:00 04/24/20 22:40 Risperdal - PO 0.5 mg BID JANET Administration Thiamine HCl 100 mg 04/24/20 22:00 04/24/20 22:40 Vitamin B1 - PO 100 mg HS JANET Administration Vital Signs Temperature 97.7 F 04/25/20 07:08 Pulse Rate 75 04/25/20 07:08 Respiratory Rate 18 04/25/20 07:08 Blood Pressure 117/77 04/25/20 07:08 O2 Sat by Pulse Oximetry (%) 100 04/25/20 07:08 PE Gnl: WDWN, in no distress MS: nl mentation Motor: sitting up in bed, moves limbs well Gait: steady Assessment: 04/25/20 09:17 1. Alcohol use disorder 2. Seen by Psychiatry yesterday, bipolar and substance induced mood disorder 04/25/20 09:18 Plan: 1. Ativan detox protocol. 2. Psychiatry resumed medications
[2020-04-25] MEDS: PRENATAL VITAMINS W/ FOLIC ACID TABLET (FP) PO SCH (10:12)
[2020-04-25] MEDS: risperiDONE 1 MG TABLET PO SCH ×2 (10:13→22:51)
[2020-04-25] MEDS: NICOTINE 7 MG/24 HOURS TOPICAL PATCH TD SCH (10:15)
[2020-04-25] MEDS: CITALOPRAM HYDROBROMIDE 10 MG TABLET PO SCH (10:52)
[2020-04-25] MEDS: MELATONIN 5 MG TABLETS PO SCH (22:51)
[2020-04-25] MEDS: THIAMINE HCL 100 MG TABLET (FP) PO SCH (22:52)
[2020-04-25] MEDS: MIRTAZAPINE 15 MG TABLET (FP) PO SCH (22:52)
[2020-04-26] MEDS: hydrOXYzine PAMOATE 25 MG CAPSULE (FP) PO SCH ×5 (05:14→22:55)
[2020-04-26] MEDS: GABAPENTIN 100 MG CAPSULE PO SCH ×3 (05:14→22:55)
[2020-04-26] MEDS: LORazepam 1 MG TABLET PO SCH ×4 (05:14→22:55)
[2020-04-26] MEDS: LORazepam 1 MG TABLET PO PRN (08:47)
[2020-04-26] MEDS: PRENATAL VITAMINS W/ FOLIC ACID TABLET (FP) PO SCH (10:37)
[2020-04-26] MEDS: CITALOPRAM HYDROBROMIDE 10 MG TABLET PO SCH (10:37)
[2020-04-26] MEDS: risperiDONE 1 MG TABLET PO SCH ×2 (10:39→22:55)
[2020-04-26] MEDS: NICOTINE 7 MG/24 HOURS TOPICAL PATCH TD SCH (10:41)
--- NOTE | 2020-04-26 11:34 | PN ---
S CIWA - CIWA Score Nausea/Vomitin-No Nausea/No Vomiting Muscle Tremors: None Anxiety: 2 Agitation: 0-Normal Activity Paroxysmal Sweats: 2 Orientation: 0-Oriented Tacttile Disturbances: 0-None Auditory Disturbances: 0-None Visual Disturbances: 0-None Headache: 2-Mild CIWA-Ar Total Score: 6 BHS Progress Note (SOAP) Subjective: c/o sweats, anxiety, and headache. Objective: 04/26/20 11:33 Vital Signs 04/26/20 04/26/20 06:26 09:59 Temperature 97.1 F L 97.8 F Pulse Rate 80 126 H Respiratory 18 20 Rate Blood Pressure 108/72 147/102 H O2 Sat by Pulse 99 Oximetry (%) Laboratory Last Values WBC 8.0 K/mm3 (4.0-10.0) 04/24/20 13:00 RBC 5.10 M/mm3 (4.00-5.60) 04/24/20 13:00 Hgb 15.7 GM/dL (11.7-16.9) 04/24/20 13:00 Hct 46.1 % (35.4-49) 04/24/20 13:00 MCV 90.5 fl (80-96) 04/24/20 13:00 MCH 30.7 pg (25.7-33.7) 04/24/20 13:00 MCHC 34.0 g/dl (32.0-35.9) 04/24/20 13:00 RDW 13.8 % (11.9-15.9) 04/24/20 13:00 Plt Count 322 K/MM3 (134-434) 04/24/20 13:00 MPV 8.0 fl (7.5-11.1) 04/24/20 13:00 Sodium 139 mmol/L (136-145) 04/24/20 13:00 Potassium 4.2 mmol/L (3.5-5.1) 04/24/20 13:00 Chloride 104 mmol/L (98-107) 04/24/20 13:00 Carbon Dioxide 29 mmol/L (21-32) 04/24/20 13:00 Anion Gap 7 MMOL/L (8-16) L 04/24/20 13:00 BUN 15.2 mg/dL (7-18) 04/24/20 13:00 Creatinine 0.9 mg/dL (0.55-1.3) 04/24/20 13:00 Est GFR (CKD-EPI)AfAm 110.27 04/24/20 13:00 Est GFR (CKD-EPI)NonAf 95.14 04/24/20 13:00 Random Glucose 161 mg/dL (74-106) H 04/24/20 13:00 Calcium 9.5 mg/dL (8.5-10.1) 04/24/20 13:00 Total Bilirubin 0.9 mg/dL (0.2-1) 04/24/20 13:00 AST 122 U/L (15-37) H 04/24/20 13:00 ALT 109 U/L (13-61) H 04/24/20 13:00 Alkaline Phosphatase 129 U/L (45-117) H 04/24/20 13:00 Total Protein 7.6 g/dl (6.4-8.2) 04/24/20 13:00 Albumin 3.8 g/dl (3.4-5.0) 04/24/20 13:00 Syphilis Serology Non-reactive (NONREACTIVE) 04/24/20 13:00 COVID-19 (RUI) Not detected (Not Detected) 04/24/20 14:30 HIV Ag/Ab Combo Qual Negative (NEGATIVE) 04/25/20 08:40 Labs noted with elevated AST/ALT. Assessment: 04/26/20 11:34 AOX3, in no acute respiratory distress. Full ROM, ambulating in the unit. Withdrawal symptoms. Elevated liver enzymes. Plan: continue ativan detox.
[2020-04-26] MEDS: MELATONIN 5 MG TABLETS PO SCH (22:55)
[2020-04-26] MEDS: THIAMINE HCL 100 MG TABLET (FP) PO SCH (22:55)
[2020-04-26] MEDS: MIRTAZAPINE 15 MG TABLET (FP) PO SCH (22:55)
[2020-04-27] MEDS ORDERED: LORazepam 0.5 MG TABLET PO PRN
[2020-04-27] MEDS: hydrOXYzine PAMOATE 25 MG CAPSULE (FP) PO SCH ×5 (05:23→22:10)
[2020-04-27] MEDS: GABAPENTIN 100 MG CAPSULE PO SCH ×3 (05:23→22:08)
[2020-04-27] MEDS: LORazepam 0.5 MG TABLET PO SCH ×4 (05:23→23:01)
--- NOTE | 2020-04-27 10:15 | PN ---
S CIWA - CIWA Score Nausea/Vomitin-No Nausea/No Vomiting Muscle Tremors: 1-None Visible, but [place] Anxiety: 1-Mildly Anxious Agitation: 0-Normal Activity Paroxysmal Sweats: No Perspiration Orientation: 0-Oriented Tacttile Disturbances: 0-None Auditory Disturbances: 0-None Visual Disturbances: 1-Very Mild Sensitivity Headache: 0-None Present CIWA-Ar Total Score: 3 B[facility] Progress Note (SOAP) Subjective: 54 years old male was admitted on 04/24/20 for alcohol withdrawal sx management treating with ativan detox regiment feels better today less tremor mild anxiety seen by psychiatrist resume celex gabapentin risperidon and remeron mr andrew prefers out [facility] alcohol abuse treatment for alcohol abuse community support Objective: 04/27/20 10:26 Vital Signs - 24 hr 04/26/20 04/26/20 04/26/20 12:40 14:55 17:12 Temperature 97.5 F L 97.6 F Pulse Rate 134 H 120 H 101 H Respiratory 20 16 Rate Blood Pressure 135/90 148/99 O2 Sat by Pulse 98 Oximetry (%) 04/26/20 04/27/20 04/27/20 20:55 06:15 09:05 Temperature 97.8 F 97.0 F L 97.3 F L Pulse Rate 99 H 55 L 83 Respiratory 16 18 18 Rate Blood Pressure 144/95 143/81 91/54 L O2 Sat by Pulse 100 97 Oximetry (%) Laboratory Tests 04/24/20 04/24/20 04/24/20 13:00 13:00 13:00 WBC 8.0 RBC 5.10 Hgb 15.7 Hct 46.1 MCV 90.5 MCH 30.7 MCHC 34.0 RDW 13.8 Plt Count 322 MPV 8.0 Sodium 139 Potassium 4.2 Chloride 104 Carbon Dioxide 29 Anion Gap 7 L BUN 15.2 Creatinine 0.9 Est GFR (CKD-EPI)AfAm 110.27 Est GFR (CKD-EPI)NonAf 95.14 Random Glucose 161 H Calcium 9.5 Total Bilirubin 0.9 AST 122 H ALT 109 H Alkaline Phosphatase 129 H Total Protein 7.6 Albumin 3.8 Syphilis Serology Non-reactive COVID-19 (RUI) HIV Ag/Ab Combo Qual 04/24/20 04/25/20 14:30 08:40 WBC RBC Hgb Hct MCV MCH MCHC RDW Plt Count MPV Sodium Potassium Chloride Carbon Dioxide Anion Gap BUN Creatinine Est GFR (CKD-EPI)AfAm Est GFR (CKD-EPI)NonAf Random Glucose Calcium Total Bilirubin AST ALT Alkaline Phosphatase Total Protein Albumin Syphilis Serology COVID-19 (RUI) Not detected HIV Ag/Ab Combo Qual Negative glucose elevation ast elevation Assessment: 04/27/20 10:35 alcohol withdrawal hyperglycemia ast elevation Plan: ativan regiment mr morales agrees to follow up with community health services for [id number] and repeat ast
[2020-04-27] MEDS: CITALOPRAM HYDROBROMIDE 10 MG TABLET PO SCH (10:28)
[2020-04-27] MEDS: PRENATAL VITAMINS W/ FOLIC ACID TABLET (FP) PO SCH (10:28)
[2020-04-27] MEDS: risperiDONE 1 MG TABLET PO SCH ×2 (10:28→22:10)
[2020-04-27] MEDS: NICOTINE 7 MG/24 HOURS TOPICAL PATCH TD SCH (10:29)
[2020-04-27 17:54] VITALS: TEMP 97.7
[2020-04-27] MEDS: MIRTAZAPINE 15 MG TABLET (FP) PO SCH (22:08)
[2020-04-27] MEDS: MELATONIN 5 MG TABLETS PO SCH (22:11)
[2020-04-27] MEDS: THIAMINE HCL 100 MG TABLET (FP) PO SCH (22:12)
[2020-04-28] MEDS ORDERED: LORazepam 0.5 MG TABLET PO ONE (05:00)
[2020-04-28] MEDS: GABAPENTIN 100 MG CAPSULE PO SCH (05:38)
[2020-04-28] MEDS: hydrOXYzine PAMOATE 25 MG CAPSULE (FP) PO SCH ×2 (05:38→09:24)
[2020-04-28 06:45] VITALS: BP 99/61; PULSE 73
[2020-04-28] MEDS: NICOTINE 7 MG/24 HOURS TOPICAL PATCH TD SCH (09:24)
[2020-04-28] MEDS: CITALOPRAM HYDROBROMIDE 10 MG TABLET PO SCH (09:24)
[2020-04-28] MEDS: risperiDONE 1 MG TABLET PO SCH (09:24)
[2020-04-28] MEDS: PRENATAL VITAMINS W/ FOLIC ACID TABLET (FP) PO SCH (09:24)
--- NOTE | 2020-04-28 13:42 | DS ---
[facility] Detox Discharge Summary Admission Date: 04/24/20 Discharge Date: 04/28/20 - History Present History: Alcohol Dependence Additional Comments: 54 years old male was admitted on 04/24/20 for alcohol withdrawal sx management treated with ativan detox regiment seen by psychiatrist resume celex risperidone remeron and gabapentin mr morales has completed the librium regiment and is tolerated well alert oriented x 3 ambulating steady gaits cardiac [id number] regular rate rhythm respiratory clear lungs sound bilaterally on auscultation abdomen soft none tenderness no rebound tenderness Pertinent Past History: time for discharge 32 minutes - Physical Exam Results Vital Signs: Vital Signs Temperature 97.7 F 04/28/20 06:44 Pulse Rate 73 04/28/20 06:44 Respiratory Rate 18 04/28/20 06:44 Blood Pressure 99/61 04/28/20 06:44 O2 Sat by Pulse Oximetry (%) 99 04/28/20 06:44 Pertinent Admission Physical Exam Findings: alcohol withdrawal Laboratory Tests 04/24/20 04/24/20 04/24/20 13:00 13:00 13:00 WBC 8.0 RBC 5.10 Hgb 15.7 Hct 46.1 MCV 90.5 MCH 30.7 MCHC 34.0 RDW 13.8 Plt Count 322 MPV 8.0 Sodium 139 Potassium 4.2 Chloride 104 Carbon Dioxide 29 Anion Gap 7 L BUN 15.2 Creatinine 0.9 Est GFR (CKD-EPI)AfAm 110.27 Est GFR (CKD-EPI)NonAf 95.14 Random Glucose 161 H Calcium 9.5 Total Bilirubin 0.9 AST 122 H ALT 109 H Alkaline Phosphatase 129 H Total Protein 7.6 Albumin 3.8 Syphilis Serology Non-reactive COVID-19 (RUI) HIV Ag/Ab Combo Qual 04/24/20 04/25/20 14:30 08:40 WBC RBC Hgb Hct MCV MCH MCHC RDW Plt Count MPV Sodium Potassium Chloride Carbon Dioxide Anion Gap BUN Creatinine Est GFR (CKD-EPI)AfAm Est GFR (CKD-EPI)NonAf Random Glucose Calcium Total Bilirubin AST ALT Alkaline Phosphatase Total Protein Albumin Syphilis Serology COVID-19 (RUI) Not detected HIV Ag/Ab Combo Qual Negative lab noted - Treatment Hospital Course: Detox Protocol Followed, Detoxed Safely, Responded well, Discharged Condition Good, Rehab Referral Accepted Patient has Accepted a Rehab Referral to: [facility] substance abuse treatment center - Medication Discharge Medications: Ambulatory Orders Folic Acid 1 mg PO DAILY 08/30/19 Multivitamins [Multivit ([facility] Formulary)] 1 tab PO DAILY 08/30/19 Citalopram Hydrobromide [Celexa -] 10 mg PO DAILY #30 tablet 03/17/20 Gabapentin [Neurontin -] 100 mg PO TID #90 capsule 03/17/20 Mirtazapine [Remeron -] 15 mg PO HS #30 tablet 03/17/20 Risperidone [Risperdal -] 0.5 mg PO BID #60 tablet 03/17/20 - Diagnosis (1) Alcohol dependence with uncomplicated withdrawal Status: Acute (2) Nicotine dependence Status: Acute Qualifiers: Nicotine product type: cigarettes Substance use status: in withdrawal Qualified Code(s): F17.213 - Nicotine dependence, cigarettes, with withdrawal (3) Substance induced mood disorder Status: Suspected - AMA Did Patient Leave Against Medical Advice: No CIWA Score - CIWA Score Nausea/Vomitin-No Nausea/No Vomiting Muscle Tremors: 1-None Visible, but [place] Anxiety: 0-No Anxiety, at Ease Agitation: 0-Normal Activity Paroxysmal Sweats: No Perspiration Orientation: 0-Oriented Tacttile Disturbances: 0-None Auditory Disturbances: 0-None Visual Disturbances: 0-None Headache: 0-None Present CIWA-Ar Total Score: 1
== END 2020-04-28 09:26 | disposition home or self-care (01) | DRG 775 ==
LOC: YASAS 11:40 → Y3N 13:28
PROVIDERS: ADMIT Allergy & Immunology; ATTEND Allergy & Immunology
PROC: HZ2ZZZZ Detoxification Services for Substance Abuse Treatment (ICD-10-PCS; principal; 2020-04-24)
DX: F10.230 Alcohol dependence with withdrawal, uncomplicated (principal); F12.20 Cannabis dependence, uncomplicated; F17.210 Nicotine dependence, cigarettes, uncomplicated; F19.24 Other psychoactive substance dependence with psychoactive substance-induced mood disorder; F31.9 Bipolar disorder, unspecified; R73.9 Hyperglycemia, unspecified; R74.0 Nonspecific elevation of levels of transaminase and lactic acid dehydrogenase [LDH]; Z59.0 Homelessness
CPT/HCPCS: 36415; 80053; 85027; 86780; 87389; J0735; J2794; U0003